=== PATIENT | male | born 1965 | race Caucasian/White ===

== ENCOUNTER → 2019-03-22 09:50 | Outpatient (BNVA) | payer OTHER, SELFPAY | PROVIDERS: Family Provider Internal Medicine; PCP Internal Medicine; Visit Provider Specialist | DX: G43.711 Chronic migraine without aura, intractable, with status migrainosus (principal); G20 Parkinson's disease; F17.220 Nicotine dependence, chewing tobacco, uncomplicated | CPT/HCPCS: 64615; 99212; J0585 ==

== ENCOUNTER 2019-05-16 15:33 | Outpatient (CLI) | payer OTHER, SELFPAY ==
--- NOTE | 2019-05-16 15:53 | MR_ITS ---
WS: [id number] MRI THORACIC SPINE HISTORY: INTERVERTEBRAL DISC DISORDERS WITH RADICULOPATHY, LUMBAR spine. COMPARISON: None available. TECHNIQUE: Multiplanar sequences are performed in sagittal and axial planes. Slight increase in the thoracic kyphosis. Mild disc space narrowing and desiccation throughout the th oracic spine. Very small amount of marrow edema in the LEFT superior articular facets of T6 and T7. S ignal within the cord is normal. T1-2: Normal. T2-3: Shallow RIGHT paracentral disc protrusion without stenosis. T3-4: Mild facet arthropathy. No stenosis. T4-5: Normal. T5-6: Mild bilateral foraminal narrowing. No stenosis. T6-7: RIGHT paracentral disc protrusion with small annular fissure. No stenosis. T7-8: Mild bilateral facet joint arthritis. T8-9: Mild facet joint arthritis. Small osteophyte from the LEFT facet extending toward the foramen with only mild encroachment. T9-10: Facet joint arthritis with mild asymmetric disc bulging to the RIGHT causing mild RIGHT hilary inal narrowing. T10-11: Facet joint arthritis bilateral with mild bilateral foraminal narrowing. T11-12: Mild facet joint arthritis with mild foraminal narrowing. MR/MR thoracic spin wo con* [id number] IMPRESSION: 1. Multilevel level very mild facet joint arthritis. No significant stenosis. 2. Small RIGHT paracentral disc protrusions at T2-3 and T6-7 without cord cont act. 3. Small amount of marrow edema in the superior articular facets on the LEFT a t T6 and T7.
--- NOTE | 2019-05-16 15:55 | XR_ITS ---
WS: [id number] LATERAL LUMBAR SPINE: 3 view. Lateral radiographs are performed in upright neutral, flexion and extension to the patient's toleranc e. HISTORY: INTERVERTEBRAL DISC DISORDERS WITH RADICULOPATHY LUMBAR SPINE. COMPARISON: 09/29/2012 L2 retrolisthesis by 3.3 mm. Does not significantly change with flexion or extension. There is modera te disc space narrowing at L5-S1. Unfused apophysis anterior superior endplate of L4. XR/XR lumbar spine f/e only [id number] IMPRESSION: 1. No lumbar spine instability. 2. Moderate degenerative disc space narrowing at L5-S1.
== END 2019-05-16 15:34 | disposition home or self-care (01) ==
LOC: RADWPI 15:43
PROVIDERS: Family Provider Internal Medicine; PCP Internal Medicine; Visit Provider Anesthesiology Pain Medicine
DX: M51.16 Intervertebral disc disorders with radiculopathy, lumbar region (principal); M47.897 Other spondylosis, lumbosacral region; M51.24 Other intervertebral disc displacement, thoracic region; M25.78 Osteophyte, vertebrae
CPT/HCPCS: 72120; 72146

== ENCOUNTER → 2019-06-28 08:17 | Outpatient (BNVA) | payer OTHER, SELFPAY | PROVIDERS: Family Provider Internal Medicine; PCP Internal Medicine; Visit Provider Specialist | DX: G43.711 Chronic migraine without aura, intractable, with status migrainosus (principal); G20 Parkinson's disease; G25.0 Essential tremor; F17.210 Nicotine dependence, cigarettes, uncomplicated | CPT/HCPCS: 64615; 99212; 99213; J0585 ==

== ENCOUNTER 2019-07-19 11:47 | Emergency (ER) | payer OTHER, SELFPAY ==
[2019-07-19 11:49] VITALS: BP 151/100; PULSE 68; RESP 18; TEMP 36.5; O2SAT 98; BMI 35.2
--- NOTE | 2019-07-19 12:11 | ED_ITS ---
HPI - Headache General: Chief Complaint: Headache Stated Complaint: H/A Time Seen by Provider: 07/19/19 11:50 History of Present Illness: HPI Narrative: Patient is a 53-year-old male who comes to the ED with a migraine. Patient has a past medical history of mi graines, essential tremor and Parkinson's disease. Patient says that this migraine is like his past migraines. Symptoms started this morning when he woke up. He rates the migraine as a 6 out of 10 currently. Location is retro- orbital on both right and left side. He did not take any medication today for his migraine and says that he gets Botox injections to help migraines. Endorses photophobia, nausea and vomiting. Denies any numbness tingling to extremities, weakness to extremities, recent head trauma, vision changes, bladder or bowel symptoms. Associated symptoms: Reports nausea and vomiting; Deny chest pain, fever(s) or rash Review of Systems Const: Denies: fever(s), chills or fatigue Eyes: Reports: photophobia; Denies: change in vision or eye discomfort ENMT: Denies: throat pain, odynophagia, nasal discharge or nasal congestion Card: Denies: chest pain, palpitations, edema, swelling of feet/ankles, dyspnea on exertion or orthopnea Resp: Denies: dyspnea, productive cough or non-productive cough GI: Reports: nausea and vomiting; Denies: abdominal pain, diarrhea, constipation or hematochezia : Denies: flank pain, difficulty urinating, dysuria or hematuria Musc: Denies: neck pain, back pain or extremity swelling Skin/Breast: Denies: rash or new lesions Neuro: Reports: headache(s); Denies: numbness in extremities or weakness in extremities [facility] ED PFSH: Medical History Essential tremor Family History Mother Cancer Grandmother Cancer Other Cerebral palsy Tremor Social History Smoking and tobacco status: never smoked Physical Exam Narrative: EXAM NARRATIVE: Patient is a 53-year-old male who is lying on the exam bed wearing sunglasses when I entered the room. Const: COMMON NORMALS: patient oriented x3 and alert GENERAL APPEARANCE: cooperative and comfortable HENMT: COMMON NORMALS: normocephalic HEAD & SCALP: normocephalic MOUTH: Normal oral and palatal mucosa present THROAT: posterior oropharynx normal and uvula midline Eye: COMMON NORMALS: Equal, round and reactive pupils present and EOMs intact bilaterally PUPIL: Yes Equal, round and reactive pupils present Neck/C-Spine: COMMON NORMALS: supple GENERAL: Yes normal visual inspection Resp: COMMON NORMALS: normal respiratory effort, No retractions, No use of accessory muscles and clear to auscultation bilaterally AUSCULTATION: clear to auscultation bilaterally Cardio: COMMON NORMALS: regular rate, regular rhythm, S1 normal heart sound present, S2 normal heart sound present, No gallops present (Cardio), No clicks present (Cardio), No murmurs present (Cardio) and Peripheral pulses 2+ throughout RATE: regular rate RHYTHM: regular rhythm HEART SOUNDS: S1 normal heart sound present and S2 normal heart sound present PERIPHERAL PULSES: Peripheral pulses 2+ throughout GI: COMMON NORMALS: Normal to inspection, nondistended, normoactive bowel sounds present, Soft to palpation, non-tender and no masses PALPATION: Yes Soft to palpation : COMMON NORMALS: Yes no CVA tenderness BLADDER/KIDNEY EXAM: Yes no CVA tenderness Back/Pelvis: COMMON NORMALS: no CVA tenderness Extremity: COMMON NORMALS: normal to inspection and no pedal edema Neuro: COMMON NORMALS: patient oriented x3, CN's II-XII intact bilaterally, moves all extremities, no focal motor deficits and no sensory deficits noted SENSORIUM/ORIENTATION: Yes alert COORDINATION/BALANCE: [id number] test normal SENSORY EXAM: Yes extremities (intact) MOTOR EXAM: 5/5 motor strength present throughout COORDINATION: [id number] test normal Skin: COMMON NORMALS: no rashes or lesions noted GENERAL SKIN EXAM: no rashes or lesions noted and dry skin Course Reevaluation(s): Reevaluation #1: After giving Toradol and sumatriptan patient's headache had not improved. He is still reporting a 6-7 out of 10 rated migraine. I looked over previous medical records and he was given Dilaudid in the past to treat migraine. I discussed that with patient and he agreed with plan to give Dilaudid to reduce migraine. Reevaluation #2: Patient says his migraine now is 1 down to a 1. Patient is ready to go home and rest. Time: 15:18 Vital Signs: Vital signs: Vital Signs Temperature 97.7 F 07/19/19 11:49 Pulse Rate 58 L 07/19/19 14:32 Respiratory Rate 14 07/19/19 14:32 Blood Pressure 150/88 07/19/19 14:32 Pulse Oximetry 100 07/19/19 14:32 MDM - Headache MDM Narrative: Medical decision making narrative: Patient is a 53-year-old male who comes to the ED with a migraine. Patient has a past medical history of migraines and is currently being treated with injections Botox. Migraine is similar to past migraines and neuro exam was normal. Patient was given the migraine cocktail of IV fluids, Toradol, Reglan, Decadron, and Benadryl. Migraine did not improve and sumatriptan was then given. Migraine still but not improved with sumatriptan. I reviewed patient's past ED visits for migraine and Dilaudid has been given before to help with migraines. I decided to give patient a dose of Dilaudid and patient's migraine significantly improved. Patient was discharged and told to follow-up with PCP in 7 to 10 days for reevaluation. Patient understood and agreed with plan. Discharge Plan Discharge Patient Disposition: Home, Self-Care Clinical Impression: Chronic migraine without aura, intractable, with status migrainosus Condition: Stable Prescriptions: No Action primidone 50 mg tablet 50 mg PO BID RF: 0 gemfibrozil 600 mg tablet 600 mg PO BID RF: 0 melatonin 3 mg capsule 6 mg PO .HS RF: 0 cyproheptadine 4 mg tablet 4 mg PO .HS RF: 0 prazosin 2 mg capsule 4 mg PO .HS RF: 0 venlafaxine 75 mg capsule,extended release 24hr 225 mg PO DAILY RF: 0 hydroxyzine HCl 25 mg tablet 25 mg PO .HS RF: 0 carbamazepine 200 mg tablet 200 mg PO BID RF: 0 celecoxib 200 mg capsule 200 mg PO DAILY RF: 0 mirtazapine 30 mg tablet 30 mg PO .HS RF: 0 Discharge Orders: Discharge Order (Routine); Ordered 07/19/19 Ordered By: Otis Torres Referrals: Levi Toribio [Primary Care Provider] - Discharge Diet: Regular Discharge Activity: Increase activity as tolerated Patient Instructions: Migraine Headache (ED) Activity Restrictions/Additional Instructions: Go home and rest today. Follow-up with your PCP in 7 days for reevaluation. Drink plenty of fluids and stay hydrated. Return to the ED if symptoms worsen. Discharge Date/Time: 07/19/19 15:42 Coding Level of Care Code ED College President for Elio Fwgualberto Exam Comprehensive
[2019-07-19 12:37] VITALS: BP 125/79; PULSE 62; RESP 14; O2SAT 100
[2019-07-19] MEDS: sodium chloride 0.9% 1,000 ML 999 ML IV (12:38)
[2019-07-19] MEDS: dexamethasone 10 mg/mL INJ IVP (12:39)
[2019-07-19] MEDS: ketorolac 30 mg/mL INJ IVP (12:39)
[2019-07-19] MEDS: diphenhydrAMINE 50 mg/mL SDV 1mL 25 MG IVP (12:39)
[2019-07-19] MEDS: metoclopramide 5 mg/mL SDV 2 mL 10 MG IVP (12:39)
[2019-07-19 13:28] VITALS: BP 136/87; PULSE 60; RESP 14; O2SAT 99
[2019-07-19] MEDS: SUMAtriptan 6 mg/0.5 mL SDV SUBCUT (13:46)
[2019-07-19 14:32] VITALS: BP 150/88; PULSE 58; RESP 14; O2SAT 100
[2019-07-19] MEDS: HYDROmorphone 1 mg/mL INJ 1 mL IVP (14:56)
== END 2019-07-19 15:42 | disposition home or self-care (01) ==
PROVIDERS: Emergency Provider Physician Assistant; PCP Internal Medicine
DX: G43.711 Chronic migraine without aura, intractable, with status migrainosus (principal)
CPT/HCPCS: 12345; 96361; 96372; 96374; 96375; 99283; J1100; J1170; J1200; J1885; J2765; J3030; J7030

== ENCOUNTER → 2019-09-20 08:08 | Outpatient (BNVA) | payer OTHER, SELFPAY | PROVIDERS: Family Provider Internal Medicine; PCP Internal Medicine; Visit Provider Specialist | DX: G43.711 Chronic migraine without aura, intractable, with status migrainosus (principal); G25.0 Essential tremor; G20 Parkinson's disease | CPT/HCPCS: 64615; J0585 ==

== ENCOUNTER 2019-09-27 02:47 | Inpatient (IN) | payer OTHER, SELFPAY ==
[2019-09-27] VITALS (10 sets, daily range): BP systolic 78–139; BP diastolic 49–92; PULSE 53–64; RESP 10–21; TEMP 36.3–36.8; O2SAT 92–99; BMI 36.3
--- NOTE | 2019-09-27 02:51 | XR_ITS ---
WS: [id number] Portable AP upright chest, 09/27/2019 Clinical Data: syncope Comparison: Portable chest, 03/23/2017. Findings: No nodules, masses or effusions are seen. The heart is normal. The pulmonary vascularity is not increased. No pneumonia or pneumothorax is seen. XR/XR chest 1V portable [id number] Impression: Negative chest.
--- NOTE | 2019-09-27 02:51 | CTR_ITS ---
PROCEDURE INFORMATION: Exam: CT Head Without Contrast Exam date and time: 09/27/2019 3:06 AM Age: 53 years old Clinical indication: Syncope and collapse; Patient HX: Syncope this a. M. Bradycardic and hypotensive. History of chronic migraines. TECHNIQUE: Imaging protocol: Computed tomography of the head without contrast. Radiation optimization: All CT scans at this facility use at least one of these dose optimization techniques: automated exposure control; mA and/or kV adjustment per patient size (includes targeted exams where dose is matched to clinical indication); or iterative reconstruction. COMPARISON: CT head wo con* [id number] 05/07/2013 10:32 PM RADIATION DOSE METRICS: Total DLP (mGy-cm): 889.16 FINDINGS: Brain: No acute intracranial hemorrhage or mass effect. No definite acute infarct by CT. MRI could be more sensitive/specific for detection, as clinically directed. Ventricles: Ventricle size is normal for age. Bones/joints: No definite acute skull fracture. Sinuses: Included paranasal sinuses are essentially clear. Mastoid air cells: No significant acute finding. CT/CT head wo con* [id number] IMPRESSION: 1. No acute intracranial hemorrhage or mass effect. 2. No definite acute infarct by CT, see above. 3. Other findings discussed above. Radiation Dose CTDIVOL = (mGy): DLP = 889.16 (mGy-cm)
--- NOTE | 2019-09-27 02:51 | ECG_ITS ---
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 Measurements Intervals [place] Rate: 55 P: 40 [place]: 186 QRS: 35 QRSD: 99 T: 45 QT: 458 QTc: 440 Interpretive Statements SINUS BRADYCARDIA Compared to ECG 03/23/2017 00:24:41 No significant changes Electronically Signed On 09-27-2019 17:06:42 CDT by Quincy Cook M.D. [id number] f
--- NOTE | 2019-09-27 03:05 | ED_ITS ---
HPI - Syncope General: Chief Complaint: Syncope Stated Complaint: FALL Time Seen by Provider: 09/27/19 02:48 Source: patient and EMS Mode of arrival: EMS Limitations: no limitations History of Present Illness: HPI narrative: 53-year-old male who states he got up tonight roughly 30 minutes ago and had a syncopal event. He states that he started new medication 2 weeks ago and has had fluctuating blood pressure since then. Patient was hypotensive when EMS arrived in the 60s and blood pressure is 83/50. He denies any cough or fever. He denies any chest pain. He states he d id strike his head when he fell and has a mild headache. Denies any worsening improving factors. Associated symptoms: Deny abdominal pain, fever(s), headache(s) or nausea Review of Systems Const: Denies: fever(s), chills, body aches or change in appetite Eyes: Denies: blurry vision or eye discomfort ENMT: Denies: throat pain or dental pain Card: Reports: syncope Resp: Denies: dyspnea GI: Denies: abdominal pain, nausea, vomiting or diarrhea : Denies: dysuria Musc: Denies: neck pain or back pain Skin/Breast: Denies: rash Neuro: Denies: headache(s) Psych: Denies: depression Dion/Lymph: Denies: easy bruising All/Imm: Denies: urticaria PFSH ED PFSH: Medical History Essential tremor Family History Mother Cancer Grandmother Cancer Other Cerebral palsy Tremor Social History Smoking and tobacco status: never smoked History of recent travel: No Physical Exam Const: COMMON NORMALS: no acute distress, patient oriented x3 and healthy appearing HENMT: COMMON NORMALS: normocephalic and atraumatic HEAD & SCALP: normocephalic and atraumatic Eye: COMMON NORMALS: Equal, round and reactive pupils present and EOMs intact bilaterally PUPIL: Yes Equal, round and reactive pupils present Neck/C-Spine: COMMON NORMALS: full ROM and supple Chest: COMMONS NORMALS: normal inspection of the chest and normal palpation of entire chest wall Resp: COMMON NORMALS: normal respiratory effort, No retractions, No use of accessory muscles and clear to auscultation bilaterally AUSCULTATION: clear to auscultation bilaterally Cardio: COMMON NORMALS: regular rhythm and No murmurs present (Cardio) RATE: bradycardic RHYTHM: regular rhythm GI: COMMON NORMALS: Normal to inspection, nondistended, normoactive bowel sounds present, Soft to palpation, non-tender and no masses PALPATION: Yes Soft to palpation Extremity: COMMON NORMALS: normal to inspection and full ROM Neuro: COMMON NORMALS: patient oriented x3, moves all extremities and no focal motor deficits Psych: COMMON NORMALS: mental status grossly normal, Normal thought process present and cooperative THOUGHT PROCESS: Normal thought process present Skin: COMMON NORMALS: no rashes or lesions noted and no wounds GENERAL SKIN EXAM: no rashes or lesions noted Course Vital Signs: Vital signs: Vital Signs Temperature 98.0 F 09/27/19 02:49 Pulse Rate 55 L 09/27/19 04:46 Respiratory Rate 17 09/27/19 04:46 Blood Pressure 92/53 09/27/19 04:46 Pulse Oximetry 98 09/27/19 04:46 MDM - Syncope MDM Narrative: Medical decision making narrative: Jim presents here with acute kidney injury likely from his new medications HCTZ and celecoxib. This is likely caused his slight hypotension and syncope as well. Patient has no signs of acute coronary cause. Patient given IV fluids here and blood pressure is improved. I spoke to hospitalist will admit. Lab Data: Labs: Lab Results 09/27/19 09/27/19 09/27/19 Range/Units 03:10 03:10 03:10 WBC 7.2 (4.0-10.0) 10^3/ uL RBC 4.79 (4.1-5.3) 10^6/u L Hgb 13.8 (11.7-16.6) g/dL Hct 42.1 (42.0-52.0) % MCV 87.9 (80-94) fL MCH 28.8 (28.0-34.0) pg MCHC 32.8 (30.0-36.0) g/dL RDW 12.1 (12.1-15.1) % Plt Count 258 (130-400) 10^3/c mm MPV 9.8 (7.4-10.4) fL Neut % (Auto) 58.1 % Lymph % (Auto) 29.4 % [place] % (Auto) 7.4 % Eos % (Auto) 4.3 % Baso % (Auto) 0.4 % Neut # (Auto) 4.17 (1.8-7.7) 10^3/u L Lymph # (Auto) 2.1 (0.8-4.8) 10^3/u L [place] # (Auto) 0.5 (0.2-0.9) 10^3/u L Eos # (Auto) 0.3 (0.0-0.8) 10^3/u L Baso # (Auto) 0.0 (0.0-0.1) 10^3/u L Nucleated RBC % (a uto) 0 % Nucleated RBCs # 0.0 /100WBC PT 14.00 H (10.5-13.3) SECO NDS INR 1.05 (0.8-1.2) Sodium 137 (136-145) mmol/L Potassium 3.7 (3.5-5.1) mmol/L Chloride 99 (98-107) mmol/L Carbon Dioxide 24 (22-29) mmol/L Anion Gap 17.7 (5-19) BUN 34 H (6-20) mg/dL Creatinine 3.4 H (0.7-1.2) mg/dL GFR Calculation 19.2 L (90-130) mL/min Glucose 128 H (65-115) mg/dL Calculated Osmolal ity 283 L (285-295) mOsm/k g Lactate (0.5-2.2) mmol/L Calcium 9.2 (8.5-10.5) mg/dL Total Bilirubin 0.2 (0.15-1.2) mg/dL AST 24 (0-40) U/L ALT 27 (0-41) U/L Alkaline Phosphata se 64 (40-130) IU/L Troponin T Baselin e (0-15) ng/L Total Protein 7.6 (6.6-8.7) g/dL Albumin 5.0 (3.5-5.2) g/dL Globulin 2.6 (1.3-4.6) g/dL 07/23/20 07/23/20 Range/Units 03:10 03:36 WBC (4.0-10.0) 10^3/ uL RBC (4.1-5.3) 10^6/u L Hgb (11.7-16.6) g/dL Hct (42.0-52.0) % MCV (80-94) fL MCH (28.0-34.0) pg MCHC (30.0-36.0) g/dL RDW (12.1-15.1) % Plt Count (130-400) 10^3/c mm MPV (7.4-10.4) fL Neut % (Auto) % Lymph % (Auto) % [place] % (Auto) % Eos % (Auto) % Baso % (Auto) % Neut # (Auto) (1.8-7.7) 10^3/u L Lymph # (Auto) (0.8-4.8) 10^3/u L [place] # (Auto) (0.2-0.9) 10^3/u L Eos # (Auto) (0.0-0.8) 10^3/u L Baso # (Auto) (0.0-0.1) 10^3/u L Nucleated RBC % (a uto) % Nucleated RBCs # /100WBC PT (10.5-13.3) SECO NDS INR (0.8-1.2) Sodium (136-145) mmol/L Potassium (3.5-5.1) mmol/L Chloride (98-107) mmol/L Carbon Dioxide (22-29) mmol/L Anion Gap (5-19) BUN (6-20) mg/dL Creatinine (0.7-1.2) mg/dL GFR Calculation (90-130) mL/min Glucose (65-115) mg/dL Calculated Osmolal ity (285-295) mOsm/k g Lactate 1.6 (0.5-2.2) mmol/L Calcium (8.5-10.5) mg/dL Total Bilirubin (0.15-1.2) mg/dL AST (0-40) U/L ALT (0-41) U/L Alkaline Phosphata se (40-130) IU/L Troponin T Baselin e 24 H (0-15) ng/L Total Protein (6.6-8.7) g/dL Albumin (3.5-5.2) g/dL Globulin (1.3-4.6) g/dL Imaging Data^: CXR: Attestation: I personally reviewed and interpreted this imaging study as follows: My impression: no acute abnormality CT Head: Attestation: I personally reviewed and interpreted this imaging study as follows: Radiologist's impression: [address] [address] [address] Scan Report Signed Patient: Sae Zavala Unit #: [id number] : 1965 Age/Sex: 53 / M ADM Date: 09/27/19 Loc: ER Room/Bed: Attending Dr: Ordering Provider/Ordering MD: Kali Gregg MD Date of Service: 09/27/19 Procedure(s): CT head wo con* [id number] Accession Number(s): [id number] Report Number: [id number] PROCEDURE INFORMATION: Exam: CT Head Without Contrast Exam date and time: 09/27/2019 3:06 AM Age: 53 years old Clinical indication: Syncope and collapse; Patient HX: Syncope this a. M. Bradycardic and hypotensive. History of chronic migraines. TECHNIQUE: Imaging protocol: Computed tomography of the head without contrast. Radiation optimization: All CT scans at this facility use at least one of these dose optimization techniques: automated exposure control; mA and/or kV adjustment per patient size (includes targeted exams where dose is matched to clinical indication); or iterative reconstruction. COMPARISON: CT head wo con* [id number] 05/07/2013 10:32 PM RADIATION DOSE METRICS: Total DLP (mGy-cm): 889.16 FINDINGS: Brain: No acute intracranial hemorrhage or mass effect. No definite acute infarct by CT. MRI could be more sensitive/specific for detection, as clinically directed. Ventricles: Ventricle size is normal for age. Bones/joints: No definite acute skull fracture. Sinuses: Included paranasal sinuses are essentially clear. Mastoid air cells: No significant acute finding. CT/CT head wo con* [id number] IMPRESSION: 1. No acute intracranial hemorrhage or mass effect. 2. No definite acute infarct by CT, see above. 3. Other findings discussed above. EKG Data^: EKG 1: Attestation: I personally reviewed and interpreted this EKG as follows: EKG interpretation date: 09/27/19 EKG interpretation time: 03:05 Interpretation: sinus jessica hr [address] or t wave abnormalities qrs 99 qtc 447 Discharge Plan Discharge Patient Disposition: Admitted As Inpatient Admit Provider: Santhosh Lainez Discharge Date/Time: 09/27/19 04:53 Coding Level of Care Code ED Entry Level Machine Operator for Chg Fwd Exam Comprehensive
[2019-09-27 03:29] LABS: Basophils % 0.4 %; Eosinophils # 0.3 10^3/uL (0.0-0.8); Eosinophils % 4.3 %; Hematocrit 42.1 % (42.0-52.0); Hemoglobin 13.8 g/dL (11.7-16.6); Lymphocytes # 2.1 10^3/uL (0.8-4.8); Lymphocytes % 29.4 %; Mean Corpuscular HGB Conc 32.8 g/dL (30.0-36.0); Mean Corpuscular Hemoglobin 28.8 pg (28.0-34.0); Mean Corpuscular Volume 87.9 fL (80-94); Mean Platelet Volume 9.8 fL (7.4-10.4); Monocytes # 0.5 10^3/uL (0.2-0.9); Monocytes % 7.4 %; Neutrophils # 4.17 10^3/uL (1.8-7.7); Neutrophils % 58.1 %; Nucleated Red Blood Cells % 0 %; Platelet Count 258 10^3/cmm (130-400); Red Blood Count 4.79 10^6/uL (4.1-5.3); Red Cell Distribution Width 12.1 % (12.1-15.1); White Blood Count 7.2 10^3/uL (4.0-10.0)
[2019-09-27] MEDS: sodium chloride 0.9% 1,000 ML 999 ML IV ×2 (03:30)
[2019-09-27 03:41] LABS: Alanine Aminotransferase 27 U/L (0-41); Alkaline Phosphatase 64 IU/L (40-130); Anion Gap 17.7 (5-19); Aspartate Amino Transferase 24 U/L (0-40); Blood Urea Nitrogen 34 mg/dL (6-20); Calcium 9.2 mg/dL (8.5-10.5); Carbon Dioxide 24 mmol/L (22-29); Chloride 99 mmol/L (98-107); Globulin 2.6 g/dL (1.3-4.6); Glomerular Filtration Rate 19.2 mL/min (90-130); Glucose 128 mg/dL (65-115); Osmolality Calculated 283 mOsm/kg (285-295); Potassium 3.7 mmol/L (3.5-5.1); Sodium 137 mmol/L (136-145); Total Bilirubin 0.2 mg/dL (0.15-1.2); Total Protein 7.6 g/dL (6.6-8.7)
[2019-09-27 03:43] LABS: Troponin(5th) Baseline 24 ng/L (0-15)
[2019-09-27 03:54] LABS: Lactate (Lactic Acid level) 1.6 mmol/L (0.5-2.2)
[2019-09-27 04:04] LABS: INR 1.05 (0.8-1.2)
--- NOTE | 2019-09-27 04:51 | ECG_ITS ---
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 Measurements Intervals [place] Rate: 55 P: 40 [place]: 186 QRS: 35 QRSD: 99 T: 45 QT: 458 QTc: 440 Interpretive Statements SINUS BRADYCARDIA Compared to ECG 03/23/2017 00:24:41 No significant changes Electronically Signed On 09-27-2019 17:09:20 CDT by Quincy Cook M.D. [id number]
--- NOTE | 2019-09-27 05:06 | PM.HP ---
Providers/Chief Complaint Admitting Physician: Santhosh Lainez MD Primary Care Provider: Levi Toribio Chief Complaint: FALL History of Present Illness Sae Zavala is a 53 year old male who carries history of Parkinson's disease follows up with Dr. Fish for migraines for Botox injections, essential tremors, depression, came in after sustaining a fall at home. Patient is stating that around midnight he got up to go to bathroom when he felt extremely dizzy and fell on the floor. Patient is denying loss of consciousness as he could easily recall what happened, his called EMS to take him to the ED for further evaluation. Patient is denying chest pain, palpitations, seizure-like activities, loss of consciousness. No recent nausea, vomiting, diarrhea or dysuria. Patient is stating that recently he started taking hydrochlorothiazide along celecoxib. He is stating that his blood pressure runs on the lower side and heart rate stays in the 60s. He is denying any constipation, extreme lethargy, history of hypothyroidism. He is stating that he felt abdominal cramps around midnight and was going towards the bathroom to have a bowel movement when it happened. Diagnosis in the ER revealed hypotension, bradycardia, I have requested 1 dose of .5 mg of atropine Requested TSH, delta troponin nonsignificant, CT head negative for acute pathology Patient currently chest pain-free, extremely somnolent and wants to go to sleep Review of Systems Const: Reports: body aches, fatigue and malaise; Denies: fever(s) or chills Eyes: Denies: change in vision ENMT: Denies: throat pain Card: Reports: lightheadedness; Denies: chest pain, palpitations, dyspnea on exertion or orthopnea Resp: Denies: dyspnea GI: Denies: abdominal pain, nausea, diarrhea or constipation : Denies: flank pain Musc: Denies: neck pain Skin/Breast: Reports: lesions Neuro: Denies: headache(s), frequent falls, behavioral changes, Slurred speech present or seizure-like activity Psych: Denies: anxiety or depression Endo: Denies: polyuria Dion/Lymph: Denies: easy bruising All/Imm: Denies: urticaria Medications/Allergies Home Medications Medication Instructions Recorded Confirmed Last Taken Type carbamazepine 200 mg tablet 200 mg PO BID 03/22/19 09/20/19 Unknown History celecoxib 200 mg capsule 200 mg PO DAILY cap 03/22/19 09/20/19 Unknown History cyproheptadine 4 mg tablet 4 mg PO .HS tab 03/22/19 09/20/19 Unknown History gemfibrozil 600 mg tablet 600 mg PO BID 03/22/19 09/20/19 Unknown History hydroxyzine HCl 25 mg tablet 25 mg PO .HS tab 03/22/19 09/20/19 Unknown History melatonin 3 mg capsule 6 mg PO .HS cap 03/22/19 09/20/19 Unknown History mirtazapine 30 mg tablet 30 mg PO .HS tab 03/22/19 09/20/19 Unknown History prazosin 2 mg capsule 4 mg PO .HS cap 03/22/19 09/20/19 Unknown History primidone 50 mg tablet 50 mg PO BID tab 03/22/19 09/20/19 Unknown History venlafaxine 75 mg capsule,extended 225 mg PO DAILY cap 03/22/19 09/20/19 Unknown History release 24 hr Allergies Allergy/AdvReac Type Severity Reaction Status Date / Time valproic acid Allergy unkown Verified 09/27/19 05:08 PFSH Acute PFSH: Medical History Ch mgr wo marilyn w ntr w st Chronic migraine without aura, intractable, with status migrainosus Essential tremor Essential tremor Parkinson disease Surgical History History of carpal tunnel release History of cholecystectomy Family History Mother Cancer Grandmother Cancer Other Cerebral palsy Tremor Social History Smoking and tobacco status: never smoked History of recent travel: No Vitals/I&O/Wt Last Vital Signs Temp 98.0 F 09/27/19 02:49 Pulse 55 L 09/27/19 04:46 Resp 17 09/27/19 04:46 BP 92/53 09/27/19 04:46 Pulse Ox 98 09/27/19 04:46 09/26/19 09/26/19 09/27/19 14:59 22:59 06:59 Intake Total 1999 Balance 1999 Weight last 48 hrs Weight 102.058 kg Physical Exam Narrative: EXAM NARRATIVE: male very pleasant to communicate, extremely somnolent Bradycardic and hypotensive S1, S2 no signs of heart failure Abdomen soft, distended, visceral obesity, EOMI, PERRLA GCS 15, neurologically nonfocal deficit Lungs are clear to auscultation Multiple skin tattoos Appropriate mood and affect No respiratory distress or confusion No lower extremity edema gangrene or ulcer Data : 09/27/19 03:10 09/27/19 03:10 A&P Assessment and plan (1) Dizziness: Status: Acute (2) Dehydration: Status: Acute (3) CAROLEE (acute kidney injury): Status: Acute Additional A&P Information Dizziness Patient describe dizziness as lightheadedness I believe his dizziness is secondary to autonomic dysfunction which 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 with concomitant use of sedating agents such as mirtazapine I would give him 1 dose of 0.5 mg of atropine check TSH, request echo Currently chest pain-free, troponin not similarly high Patient is denying history of seizures, AR, coronary disease Sinus bradycardia Symptomatic bradycardia Monitor for indication for pacemaker Patient is not on any AV agata blocking agent Follow-up with TSH No signs of coronary ischemia I would hold mirtazapine Acute kidney injury secondary to drug intake Patient recently started hydrochlorothiazide, he is also taking celecoxib Hold both agents, clinically does not look dehydrated Monitor creatinine and kidney function, continue normal saline at lower rate Full code Cardiac diet DVT prophylaxis Heparin Attestations Medical Necessity Statement*: Anticipating stay in the hospital cross more than 2 midnights continued management for symptomatic bradycardia and CAROLEE Time Spent in Patient Care: (>than 50% of time spent in counselling and/or direct pt care on unit). 60mins Coding Level of Care Code Acute Office Clerk Routine for Tobiasg Fwd Diagnoses Dizziness R42 Dehydration E86.0 CAROLEE (acute kidney injury) N17.9
--- NOTE | 2019-09-27 05:08 | PC.NURSE ---
Patient arrived to the floor from the ED after report was received via phone. Patient does not know his medications well. I am unable to complete med rec at this time. Patient is alert and oriented and ambulatory. Patient has been oriented to his room and has call light within reach. Patient states he is sore all over and that I'm always sore. Patient is not in any distress at this time. Will monitor.
--- NOTE | 2019-09-27 05:24 | PC.NURSE ---
Patient has been educated to use his call light to ask for assistance before getting up. Will monitor.
--- NOTE | 2019-09-27 06:02 | USCV_ITS ---
Sae Zavala Age: 53 Gender: M : 1965 Exam Date: 09/27/2019 07:42 Ordering Phys: Santhosh Lainez MD Technologist: Brian Teresa Exam Location: [facility] – [place] Indication: CP BP: 92 / 54 HR: 57 Rhythm: Sinus Technical Quality: Fair MEASUREMENTS (Male / Female) Normal Values 2D ECHO LV Diastolic Diameter PLAX 3.4 cm 4.2 - 5.9 / 3.9 - 5.3 cm LV Systolic Diameter PLAX 2.3 cm IVS Diastolic Thickness 1.4 cm 0.6 - 1.0 / 0.6 - 0.9 cm IVS Systolic Thickness 1.9 cm LVPW Diastolic Thickness 1.4 cm 0.6 - 1.0 / 0.6 - 0.9 cm LVPW Systolic Thickness 1.5 cm LVOT Diameter 2.0 cm LV Ejection Fraction 2D Teich 61.1 % LV Ejection Fraction MOD 2C 71.7 % LV Ejection Fraction 2C AL 71.3 % LA Diameter 4.2 cm LA Width 3.4 cm LA Height 4.4 cm RA Width 3.6 cm RA Height 4.3 cm Aorta at Sinotubular Diameter 2.8 cm M-MODE LV Diastolic Diameter MM 5.4 cm 4.2 - 5.9 / 3.9 - 5.3 cm LV Systolic Diameter MM 3.4 cm LV Ejection Fraction MM Teich 67.2 % IVS Diastolic Thickness MM 1.2 cm 0.6 - 1.0 / 0.6 - 0.9 cm IVS Systolic Thickness MM 1.6 cm LVPW Diastolic Thickness MM 1.3 cm 0.6 - 1.0 / 0.6 - 0.9 cm LVPW Systolic Thickness MM 2.2 cm RV Diastolic Diameter MM 1.8 cm Aortic Annulus Diameter 4.2 cm LA Ao Ratio MM 1.0 MV E Point Septal Separation 1.2 cm DOPPLER AV Peak Velocity 147.0 cm/s LVOT Peak Velocity 98.0 cm/s AV Area Cont Eq vti 2.3 cm squared AV Area Cont Eq pk 2.2 cm squared MV Area PHT 5.0 cm squared Mitral E to A Ratio 1.3 MV E' Velocity 9.0 cm/s Mitral E to MV E' Ratio 8.8 Mitral E to LV E' Lateral Ratio 9.0 Mitral E to LV E' Septal Ratio 8.7 TR Peak Velocity 160.0 cm/s TR Peak Gradient 10.2 mmHg TV Peak E Velocity 109.0 cm/s Right Atrial Pressure 3.0 mmHg Pulmonary Artery Systolic Pressu 13.2 mmHg PV Peak Velocity 108.0 cm/s FINDINGS Left Ventricle Normal left ventricular cavity size. Normal left ventricular systolic function. No regional wall motion abnormalities. Left ventricular ejection fraction is estimated at 67 %. Grade II/IV diastolic dysfunction, moderately elevated filling pressures. Right Ventricle The right ventricle is normal in size and function. Right Atrium The right atrium is normal in size. Left Atrium The left atrium is normal in size. Mitral Valve Structurally normal mitral valve without significant stenosis or prolapse. There is no mitral regurgitation. Aortic Valve Structurally normal aortic valve without significant sclerosis or stenosis. There is no aortic regurgitation. Tricuspid Valve Structurally normal tricuspid valve without significant stenosis or regurgitation. Pulmonary artery systolic pressure is normal. Pulmonic Valve Structurally normal pulmonic valve without significant stenosis. There is no pulmonic regurgitation. Pericardium Normal pericardium without effusion. Aorta Normal ascending aorta dimension. CONCLUSIONS 1-Normal left ventricular cavity size. Normal left ventricular systolic function. No regional wall motion abnormalities. Left ventricular ejection fraction is estimated at 67 %. Grade II/IV diastolic dysfunction, moderately elevated filling pressures. 2-. There is no pericardial effusion. 3-No significant valve abnormalities. 4-Pulmonary artery systolic pressure is within normal limits. 5-Right atrial pressure is around 5 mm of mercury. 6-There are no prior echocardiogram studies to compare. Santhosh Baron MD (Electronically Signed) Final Date: 27 September 2019 22:01 S
[2019-09-27] MEDS: sodium chloride 0.9% 1,000 ML 75 ML IV ×2 (06:28→20:31)
[2019-09-27] MEDS: heparin 5,000 unit/mL INJ 1 mL 5000 UNIT SUBCUT ×3 (06:28→20:32)
--- NOTE | 2019-09-27 06:33 | PC.NURSE ---
Dr. Lainez in room to see patient. Heart rate running in the 50s. Ordered to give IV Atropine.
[2019-09-27] MEDS: atropine 0.1 mg/mL Syr 10 mL 0.4 MG IVP (06:53)
[2019-09-27] MEDS: primidone 50 mg Tablet PO ×2 (07:58→17:22)
[2019-09-27] MEDS: gemfibrozil 600 mg Tablet PO ×2 (07:58→17:22)
[2019-09-27] MEDS: venlafaxine ER (24HR) 75 mg Capsule 225 MG PO (07:58)
[2019-09-27 08:42] LABS: Thyroid Stimulating Hormone 10.37 uIU/mL (0.27-4.20)
--- NOTE | 2019-09-27 08:51 | ECG_ITS ---
[facility] Test Date: 2019-09-27 Pat Name: Sae Zavala Department: Room: 102 Gender: Male Mobile Phlebotomist: : 1965 Requested By: Kali Gregg Order Number: [id number] Paramjit MD: Quincy Cook M.D. Measurements Intervals [place] Rate: 59 P: 34 GA: 171 QRS: 12 QRSD: 96 T: 28 QT: 451 QTc: 450 Interpretive Statements SINUS BRADYCARDIA Compared to ECG 09/27/2019 03:05:31 No significant changes Electronically Signed On 09-27-2019 17:11:19 CDT by Quincy Cook M.D. [id number]
--- NOTE | 2019-09-27 09:06 | P.PN_ITS ---
Subjective Subjective: Interval history: Chart reviewed, received 0.5 mg dose of atropine around 7 AM, heart rate now in the 60s, low normal blood pressure, on room air. No apparent distress, wants to rest as he still feels quite fatigued. Encouraged to get up and walk around some so we can see how his heart rate response to exertion. Medications: Reviewed: Yes Medication Review Details: Active Medications Generic Name Dose Route Start Last Admin Trade Name Freq PRN Reason Stop Dose Admin Cyproheptadine HCl 4 mg 09/27/19 21:00 Periactin PO BEDTIME SARITHA Gemfibrozil 600 mg 09/27/19 09:00 09/27/19 07:58 Lopid PO 600 mg BID SARITHA Administration Heparin Sodium (Be ef Lung) 5,000 unit 09/27/19 06:30 09/27/19 06:28 Heparin SUBCUT 5,000 unit Q8H SARITHA Administration Sodium Chloride 1,000 mls @ 75 ml s/hr 09/27/19 06:02 09/27/19 06:28 Sodium Chloride 0.9% IV 75 mls/hr .[id number] SARITHA Administration Primidone 50 mg 09/27/19 09:00 09/27/19 07:58 Mysoline PO 50 mg BID SARITHA Administration Venlafaxine HCl 225 mg 09/27/19 09:00 09/27/19 07:58 Effexor Xr PO 225 mg DAILY SARITHA Administration valproic acid Allergy (Verified 09/27/19 05:08) unkown Vitals/I&O/Wt Last Vital Signs Temp 97.5 F L 09/27/19 07:25 Pulse 64 09/27/19 07:25 Resp 12 09/27/19 07:25 BP 90/49 09/27/19 07:25 Pulse Ox 92 09/27/19 07:25 09/26/19 09/27/19 09/27/19 22:59 06:59 14:59 Intake Total 1999 Balance 1999 Weight last 48 hrs Weight 102.058 kg Physical Exam Const: COMMON NORMALS: no acute distress and patient oriented x3 GENERAL APPEARANCE: cooperative and comfortable NUTRITIONAL APPEARANCE: obese morbidly obese ORIENTATION/CONSCIOUSNESS: Yes awake HENMT: COMMON NORMALS: normocephalic, atraumatic, hearing grossly normal bilaterally and moist oral mucous membranes HEAD & SCALP: normocephalic and atraumatic Eye: COMMON NORMALS: Equal, round and reactive pupils present, EOMs intact bilaterally and conjunctivae normal CONJUNCTIVA: Yes conjunctivae normal PUPIL: Yes Equal, round and reactive pupils present Neck/C-Spine: COMMON NORMALS: full ROM GENERAL: Yes normal visual inspection and Yes trachea midline Resp: COMMON NORMALS: normal respiratory effort, No retractions, No use of accessory muscles and clear to auscultation bilaterally EFFORT & INSPECTION: Yes able to speak in complete sentences, Yes symmetric chest movement and No tachypneic AUSCULTATION: clear to auscultation bilaterally Cardio: COMMON NORMALS: regular rhythm, S1 normal heart sound present, S2 normal heart sound present and No murmurs present (Cardio) RATE: bradycardic RHYTHM: regular rhythm HEART SOUNDS: S1 normal heart sound present and S2 normal heart sound present GI: COMMON NORMALS: Normal to inspection, nondistended, normoactive bowel sounds present, Soft to palpation and non-tender INSPECTION: Yes central obesity PALPATION: Yes Soft to palpation Extremity: COMMON NORMALS: normal to inspection, full ROM and no clubbing, cyanosis or edema; negative for no pedal edema Neuro: COMMON NORMALS: patient oriented x3, moves all extremities, no focal motor deficits and no sensory deficits noted Psych: COMMON NORMALS: mental status grossly normal, Normal thought process present, cooperative, normal affect and speech normal SPEECH: Yes normal speech THOUGHT PROCESS: Normal thought process present Skin: COMMON NORMALS: no rashes or lesions noted, no jaundice, no petechiae and no mottling GENERAL SKIN EXAM: no rashes or lesions noted Data : 09/27/19 03:10 09/27/19 03:10 A&P Assessment and plan (1) Bradycardia: -Noted to be bradycardic with heart rates in the 50s, received 0.5 mg dose of atropine x1 with some improvement in heart rate, currently in the 60s. -Per review of old [facility] records has been bradycardic in the past with heart rates in the 40s, baseline heart rate seems to be in the 50-60 range. He has had an event monitor done in 05/2011 showing sinus rhythm and sinus bradycardia, no noted arrhythmia -Telemetry monitoring -No baseline echo, ordered -Continued monitoring of vital signs -Has not been on any beta-blockers or other agata blocking agents Status: Acute (2) Dizziness: -Could be related to dehydration and bradycardia with noted hypotension -On IV fluid hydration -Fall precautions -Continued monitoring of vital signs Status: Acute (3) Dehydration: -On IVF hydration Status: Acute (4) CAROLEE (acute kidney injury): -CAROLEE on CKD stage 2 -baseline Cr < 1.0 -likely related to dehydration -on IVF hydration -avoid nephrotoxins, renally dose meds; hold hydrochlorothiazide and Celebrex -continue to monitor renal function -monitor urine output Status: Acute (5) Chronic migraine without aura, intractable, with status migrainosus: -Follows up with Dr. Fish for Botox injections, last given on 09/19 Status: Chronic (6) Essential tremor: -On primidone Status: Chronic (7) Parkinson disease: -Fall precautions Status: Chronic Additional A&P Information -Morbid obesity: BMI-36 kg/m2 -CKD stage 2 -regular diet as tolerated -DVT ppx with heparin -Dispo: home -Code status: FULL code Attestations Medical Necessity Statement*: Patient requires hospitalization for continued treatment of dehydration, bradycardia, acute renal impairment on IV fluid hydration. Time Spent in Patient Care: Greater than 35 minutes (>than 50% of time spent in counselling and/or direct pt care on unit) . Coding Level of Care Code Acute Certified Fraud Examiner for Elio Fwd Exam Comprehensive Diagnoses Bradycardia R00.1 Dizziness R42 Dehydration E86.0 CAROLEE (acute kidney injury) N17.9 Chronic migraine without aura, intractable, with status migrainosus G43.711 Essential tremor G25.0 Parkinson disease G20
--- NOTE | 2019-09-27 09:22 | US_ITS ---
WS: [id number] Bilateral renal ultrasound, 09/27/2019 Clinical Data: acute renal failure Comparison: None. Findings: The right kidney measures 12.1 cm x 5.8 cm x 5.4 cm and the left kidney is 12.2 cm x 5.0 cm x 5.6 cm. There are no cysts, masses or hydronephrosis. The renal cortical margin is normal. No renal calculi are seen. The abdominal aorta and inferior vena cava show no vascular abnormalities. The bladder was scanned and was not remarkable. US/US renal BI with bladder Impression: Negative bilateral renal ultrasound.
--- NOTE | 2019-09-27 09:37 | PC.NURSE ---
medications confirmed with patient.
[2019-09-27 10:19] LABS: Troponin 5 6HR 13.02 ng/L (0-15)
[2019-09-27 10:55] LABS: Add Urine Microscopic? NO
--- NOTE | 2019-09-27 10:59 | PC.NURSE ---
patient has some mild dizziness upon sitting up in bed patient educated to change positions slowly patient verbalized understanding and sat on side of bed for a few moments before attempting to stand. patient assisted to restroom patient tolerated well HR up to the 60s with ambulation
[2019-09-27 11:24] LABS: Bilirubin Urine Neg (NEGATIVE); Blood Urine Neg (Negative); Glucose Urine UA Norm (Normal); Ketones Urine Negative (Negative); Leukocyte Esterase Urine Negative (Negative); Nitrate Urine Negative (Negative); Protein Urine Neg (Negative); Urine Appearance Clear (CLEAR); Urine Color Yellow (Yellow); Urobilinogen Urine Norm (Negative); pH Urine 5 (5-7)
--- NOTE | 2019-09-27 19:35 | PC.NURSE ---
Received report from Marissa Gan RN. Patient resting in bed watching tv and reading a book. Patient denies discomfort or needs at this time. No distress observed. Discussed plan for tonight. Patient verbalized understanding. Assessment completed as documented.
--- NOTE | 2019-09-27 23:10 | PC.NURSE ---
Patient up to ambulate in halls with BIODIESEL PLANT MANAGER at side. Patient ambulated ~400ft. Denies any dizziness or lightheadedness. No distress observed.
[2019-09-28] VITALS: BP 127/81; PULSE 63; RESP 19; TEMP 36.8; O2SAT 95
--- NOTE | 2019-09-28 03:03 | PC.NURSE ---
Observed patient heart dropping in the low 40s during sleep. No distress observed at this time.
[2019-09-28 04:00] VITALS: BP 118/83; PULSE 54; RESP 15; TEMP 36.8; O2SAT 94
[2019-09-28 05:19] LABS: Basophils % 0.9 %; Eosinophils # 0.3 10^3/uL (0.0-0.8); Eosinophils % 6.6 %; Hematocrit 39.6 % (42.0-52.0); Lymphocytes # 2.1 10^3/uL (0.8-4.8); Lymphocytes % 43.8 %; Mean Corpuscular HGB Conc 32.8 g/dL (30.0-36.0); Mean Corpuscular Hemoglobin 29.7 pg (28.0-34.0); Mean Corpuscular Volume 90.6 fL (80-94); Mean Platelet Volume 9.9 fL (7.4-10.4); Monocytes # 0.3 10^3/uL (0.2-0.9); Monocytes % 6.4 %; Neutrophils # 1.98 10^3/uL (1.8-7.7); Neutrophils % 42.1 %; Nucleated Red Blood Cells % 0 %; Platelet Count 244 10^3/cmm (130-400); Red Blood Count 4.37 10^6/uL (4.1-5.3); Red Cell Distribution Width 12.1 % (12.1-15.1); White Blood Count 4.7 10^3/uL (4.0-10.0)
[2019-09-28] MEDS: heparin 5,000 unit/mL INJ 1 mL 5000 UNIT SUBCUT (05:31)
[2019-09-28 05:44] LABS: Anion Gap 15.2 (5-19); Blood Urea Nitrogen 27 mg/dL (6-20); Calcium 8.7 mg/dL (8.5-10.5); Carbon Dioxide 19 mmol/L (22-29); Chloride 109 mmol/L (98-107); Glomerular Filtration Rate 42.7 mL/min (90-130); Glucose 89 mg/dL (65-115); Osmolality Calculated 284 mOsm/kg (285-295); Potassium 4.2 mmol/L (3.5-5.1); Sodium 139 mmol/L (136-145)
[2019-09-28] MEDS: primidone 50 mg Tablet PO (08:10)
[2019-09-28] MEDS: venlafaxine ER (24HR) 75 mg Capsule 225 MG PO (08:10)
[2019-09-28] MEDS: gemfibrozil 600 mg Tablet PO (08:10)
[2019-09-28 08:14] VITALS: BP 126/74; PULSE 62; RESP 13; O2SAT 95
[2019-09-28] MEDS: sodium chloride 0.9% 1,000 ML 75 ML IV (08:39)
--- NOTE | 2019-09-28 09:39 | PC.CHAP ---
Pastoral Care Encounter/Spiritual Assessment Type of Contact [] Declined health advocate visit [] Patient/Family/Request visit [] Outpatient visit [] Follow-up visit [] Physician referral [] Code/Alert [x] Routine visit [] Staff referral [] Actively dying [] Patient sleeping [] Family support [] [] Out of room [] Palliative care [] [] Receiving care in room [] Pre-surgical visit [] Trauma [] Long length of stay [] ICU visit [] Other: Relational/Emotional Strength [] Patient feels connected with others/family/visitors/staff [] Distress [] Loneliness/isolation [] Abandonment Spirituality of Patient [] Person of [place] [] Attends Pentecostalism of their [place] [] Believes in Prayer [] Reads Bible or Faith materials [] There are Spiritual issues to be addressed Performance Test Architect Interventions [x] Prayer [x] Active listening [x] Non-anxious presence [x] Spiritual/emotional support [] Crisis/trauma care [] Spiritual counseling [] Bereavement support [] Provided bereavement packet [] Provided Bible/devotional materials [] Provided toy/stuffed animal, coloring book to patient or family member [] Provided Communion [] Anointing/[place] [] Salvation [x] Completed spiritual assessment [] Other: Impact on Illness or Injury [] Angry [] Fearful [] Anxious [] Often cries [] Exhaustion [] Unable to work [] Unable to attend latter-day [] Unable to walk/stand [] Unable to read [] Unable to drive [] Unable to eat/drink [] Unable to sleep [] Unable to be with family [] Patient intubated [] Other: Summary Patient seems to have some confusion.. no sure if he has seen doctor.. not sure why he falls. Time spent with patient 10 min
--- NOTE | 2019-09-28 10:05 | PC.NURSE ---
patient reports he feels much better this am after continued IV fluids, patient reports good urination although refuses to use the urinal for accurate I&O
--- NOTE | 2019-09-28 10:30 | PM.PN ---
Subjective Subjective: Interval history: Noted improvement in renal function with creatinine at 1.7 today, has been voiding well but refuses to use urinal for accurate ins and outs. Hemodynamically stable, afebrile, heart rate has remained in the 50-60 range consistently. Renal ultrasound unremarkable. Patient states that he has been ambulating off and on throughout the night and this morning. Noted to have appropriate increase in heart rate with activity, feels much better and would like to go home today. Explained need for continued hydration and close follow-up with primary care provider to repeat renal function. Also recommended discontinuation of diuretics. Medications: Reviewed: Yes Medication Review Details: Active Medications Generic Name Dose Route Start Last Admin Trade Name Freq PRN Reason Stop Dose Admin Cyproheptadine HCl 4 mg 09/27/19 21:00 09/27/19 20:32 Periactin PO 4 mg BEDTIME SARITHA Administration Gemfibrozil 600 mg 09/27/19 09:00 09/28/19 08:10 Lopid PO 600 mg BID SARITHA Administration Heparin Sodium (Be ef Lung) 5,000 unit 09/27/19 06:30 09/28/19 05:31 Heparin SUBCUT 5,000 unit Q8H SARITHA Administration Sodium Chloride 1,000 mls @ 75 ml s/hr 09/27/19 06:02 09/28/19 08:39 Sodium Chloride 0.9% IV 75 mls/hr .[id number] SARITHA Administration Primidone 50 mg 09/27/19 09:00 09/28/19 08:10 Mysoline PO 50 mg BID SARITHA Administration Venlafaxine HCl 225 mg 09/27/19 09:00 09/28/19 08:10 Effexor Xr PO 225 mg DAILY SARITHA Administration valproic acid Allergy (Verified 09/27/19 05:08) unkown Vitals/I&O/Wt Last Vital Signs Temp 98.3 F 09/28/19 04:00 Pulse 62 09/28/19 08:14 Resp 13 09/28/19 08:14 BP 126/74 09/28/19 08:14 Pulse Ox 95 09/28/19 08:14 09/27/19 09/28/19 09/28/19 22:59 06:59 14:59 Intake Total 1480 / 1480 1270 / 1270 Balance 1480 / 880 1270 / 1270 Weight last 48 hrs Weight 102.058 kg Physical Exam Const: COMMON NORMALS: no acute distress and patient oriented x3 GENERAL APPEARANCE: cooperative and comfortable NUTRITIONAL APPEARANCE: obese morbidly obese ORIENTATION/CONSCIOUSNESS: Yes awake HENMT: COMMON NORMALS: normocephalic, atraumatic, hearing grossly normal bilaterally and moist oral mucous membranes HEAD & SCALP: normocephalic and atraumatic Eye: COMMON NORMALS: Equal, round and reactive pupils present, EOMs intact bilaterally and conjunctivae normal CONJUNCTIVA: Yes conjunctivae normal PUPIL: Yes Equal, round and reactive pupils present Neck/C-Spine: COMMON NORMALS: full ROM GENERAL: Yes normal visual inspection and Yes trachea midline Resp: COMMON NORMALS: normal respiratory effort, No retractions, No use of accessory muscles and clear to auscultation bilaterally EFFORT & INSPECTION: Yes able to speak in complete sentences, Yes symmetric chest movement and No tachypneic AUSCULTATION: clear to auscultation bilaterally Cardio: COMMON NORMALS: regular rhythm, S1 normal heart sound present, S2 normal heart sound present and No murmurs present (Cardio) RATE: bradycardic (Appropriate chronotropic response with activity) RHYTHM: regular rhythm HEART SOUNDS: S1 normal heart sound present and S2 normal heart sound present GI: COMMON NORMALS: Normal to inspection, nondistended, normoactive bowel sounds present, Soft to palpation and non-tender INSPECTION: Yes central obesity PALPATION: Yes Soft to palpation Extremity: COMMON NORMALS: normal to inspection, full ROM and no clubbing, cyanosis or edema; negative for no pedal edema Neuro: COMMON NORMALS: patient oriented x3, moves all extremities, no focal motor deficits and no sensory deficits noted Psych: COMMON NORMALS: mental status grossly normal, Normal thought process present, cooperative, normal affect and speech normal SPEECH: Yes normal speech THOUGHT PROCESS: Normal thought process present Skin: COMMON NORMALS: no rashes or lesions noted, no jaundice, no petechiae and no mottling GENERAL SKIN EXAM: no rashes or lesions noted Data : 09/28/19 04:13 09/28/19 04:13 A&P Assessment and plan (1) Bradycardia: -Noted to be bradycardic with heart rates in the 50s, received 0.5 mg dose of atropine x1 with some improvement in heart rate, currently in the 60s. -Per review of [employer] records has been bradycardic in the past with heart rates in the 40s, baseline heart rate seems to be in the 50-60 range. He has had an event monitor done in 05/2011 showing sinus rhythm and sinus bradycardia, no noted arrhythmia -Telemetry monitoring -No baseline echo, EF=67%, no RWMA -Continued monitoring of vital signs -Has not been on any beta-blockers or other agata blocking agents Status: Acute (2) Dizziness: -Could be related to dehydration and bradycardia with noted hypotension -On IV fluid hydration -Fall precautions -Continued monitoring of vital signs Status: Acute (3) Dehydration: -On IVF hydration Status: Acute (4) CAROLEE (acute kidney injury): -CAROLEE on CKD stage 2 -baseline Cr < 1.0 -likely related to dehydration -on IVF hydration -avoid nephrotoxins, renally dose meds; hold hydrochlorothiazide and Celebrex -continue to monitor renal function; significant improvement noted today -voiding independently without difficulty, refuses to use urinal for accurate ins and outs Status: Acute (5) Chronic migraine without aura, intractable, with status migrainosus: -Follows up with Dr. Fish for Botox injections, last given on 09/19 Status: Chronic (6) Essential tremor: -On primidone Status: Chronic (7) Parkinson disease: -Fall precautions Status: Chronic Additional A&P Information -Morbid obesity: BMI-36 kg/m2 -CKD stage 2 -regular diet as tolerated -DVT ppx with heparin -Dispo: home -Code status: FULL code Attestations Medical Necessity Statement*: Discharge home today with close primary care provider follow-up and labs. Time Spent in Patient Care: 16 - 35 minutes (>than 50% of time spent in counselling and/or direct pt care on unit). 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
--- NOTE | 2019-09-28 11:58 | PM.DCS ---
Discharge Providers Date of Admission: 09/27/19 04:39 Date of Discharge: September 28, 2019 Attending Provider at Admission: Santhosh Lainez MD Attending Provider at Discharge: Cookie Michel MD Consults: None Primary Care Provider: Levi Toribio Diagnoses at Discharge Discharge Diagnosis (1) Bradycardia: Status: Chronic Problem details: -Noted to be bradycardic with heart rates in the 50s, received 0.5 mg dose of atropine x1 with some improvement in heart rate, currently in the 60s. -Per review of old [employer] records has been bradycardic in the past with heart rates in the 40s, baseline heart rate seems to be in the 50-60 range. He has had an event monitor done in 05/2011 showing sinus rhythm and sinus bradycardia, no noted arrhythmia -Telemetry monitoring -No baseline echo, EF=67%, no RWMA -Continued monitoring of vital signs -Has not been on any beta-blockers or other agata blocking agents (2) Dizziness: Status: Acute Problem details: -Could be related to dehydration and bradycardia with noted hypotension -On IV fluid hydration -Fall precautions -Continued monitoring of vital signs (3) Dehydration: Status: Resolved (4) CAROLEE (acute kidney injury): Status: Acute Problem details: -CAROLEE on CKD stage 2 -baseline Cr < 1.0 -likely related to dehydration -on IVF hydration -avoid nephrotoxins, renally dose meds; hold hydrochlorothiazide and Celebrex -continue to monitor renal function; significant improvement noted today -voiding independently without difficulty, refuses to use urinal for accurate ins and outs (5) Chronic migraine without aura, intractable, with status migrainosus: Status: Chronic Problem details: -Follows up with Dr. Fish for Botox injections, last given on 09/19 (6) Essential tremor: Status: Chronic Problem details: -On primidone (7) Parkinson disease: Status: Chronic Reason for Visit Reason for Visit: FALL Hospital Course Hospital Course: Patient was admitted to the cardiac stepdown unit and placed on telemetry secondary to finding of bradycardia. Per review of medical records and per patient report this is chronic and he has had a positive chronotropic response with exertion with noted bradycardia primarily during rest and at nighttime. He was noted to have acute renal impairment secondary to dehydration and recent introduction of diuretics for blood pressure control. Telemetry shows sinus bradycardia. His blood pressure here has been well controlled without treatment and with hydration his renal function has improved. He is feeling much better and would like to go home today. Discussed need for continued hydration primarily with water, and need for close follow-up with his primary care provider including a repeat BMP to continue to monitor his renal function. I anticipate that his renal function will trended down and normalize in the next several days. He is advised to seek medical attention immediately should he have recurrent symptoms. He is to continue to follow-up with Dr. Fish for his Botox injections secondary to chronic migraines. Physical Exam Const: COMMON NORMALS: no acute distress and patient oriented x3 GENERAL APPEARANCE: cooperative and comfortable NUTRITIONAL APPEARANCE: obese morbidly obese ORIENTATION/CONSCIOUSNESS: Yes awake HENMT: COMMON NORMALS: normocephalic, atraumatic, hearing grossly normal bilaterally and moist oral mucous membranes HEAD & SCALP: normocephalic and atraumatic Eye: COMMON NORMALS: Equal, round and reactive pupils present, EOMs intact bilaterally and conjunctivae normal CONJUNCTIVA: Yes conjunctivae normal PUPIL: Yes Equal, round and reactive pupils present Neck/C-Spine: COMMON NORMALS: full ROM GENERAL: Yes normal visual inspection and Yes trachea midline Resp: COMMON NORMALS: normal respiratory effort, No retractions, No use of accessory muscles and clear to auscultation bilaterally EFFORT & INSPECTION: Yes able to speak in complete sentences, Yes symmetric chest movement and No tachypneic AUSCULTATION: clear to auscultation bilaterally Cardio: COMMON NORMALS: regular rhythm, S1 normal heart sound present, S2 normal heart sound present and No murmurs present (Cardio) RATE: bradycardic (Appropriate chronotropic response with activity) RHYTHM: regular rhythm HEART SOUNDS: S1 normal heart sound present and S2 normal heart sound present GI: COMMON NORMALS: Normal to inspection, nondistended, normoactive bowel sounds present, Soft to palpation and non-tender INSPECTION: Yes central obesity PALPATION: Yes Soft to palpation Extremity: COMMON NORMALS: normal to inspection, full ROM and no clubbing, cyanosis or edema; negative for no pedal edema Neuro: COMMON NORMALS: patient oriented x3, moves all extremities, no focal motor deficits and no sensory deficits noted Psych: COMMON NORMALS: mental status grossly normal, Normal thought process present, cooperative, normal affect and speech normal SPEECH: Yes normal speech THOUGHT PROCESS: Normal thought process present Skin: COMMON NORMALS: no rashes or lesions noted, no jaundice, no petechiae and no mottling GENERAL SKIN EXAM: no rashes or lesions noted Discharge Data Data Completed and Pending: Completed Studies During Hospitalization Category Date Time Status CT head wo con* 7 [id number] Urgent Cat Scan 09/27/19 02:51 Completed XR chest 1V maria c ble [id number] Stat Exams 09/27/19 02:51 Completed CV echo complete* [id number] Routine Ultrasound 09/27/19 06:02 Completed US renal BI with bladder Routine Ultrasound 09/27/19 09:22 Completed Pending at discharge Category Date Time Status Basic Metabolic P jeromy AM LABS Lab 09/29/19 04:00 Ordered Labs from last 24 hours 09/28/19 09/28/19 04:13 04:13 WBC 4.7 RBC 4.37 Hgb 13.0 Hct 39.6 L MCV 90.6 MCH 29.7 MCHC 32.8 RDW 12.1 Plt Count 244 MPV 9.9 Neut % (Auto) 42.1 Lymph % (Auto) 43.8 [place] % (Auto) 6.4 Eos % (Auto) 6.6 Baso % (Auto) 0.9 Neut # (Auto) 1.98 Lymph # (Auto) 2.1 [place] # (Auto) 0.3 Eos # (Auto) 0.3 Baso # (Auto) 0.0 Nucleated RBC % (a uto) 0 Nucleated RBCs # 0.0 Sodium 139 Potassium 4.2 Chloride 109 H Carbon Dioxide 19 L Anion Gap 15.2 BUN 27 H Creatinine 1.7 H GFR Calculation 42.7 L Glucose 89 Calculated Osmolal ity 284 L Calcium 8.7 Vitals: Last Vital Signs Temp 98.3 F 09/28/19 04:00 Pulse 62 09/28/19 08:14 Resp 13 09/28/19 08:14 BP 126/74 09/28/19 08:14 Pulse Ox 95 09/28/19 08:14 Discharge Plan Discharge Patient Disposition: Home Condition: Stable Prescriptions: Continued primidone 50 mg tablet 50 mg PO BID RF: 0 gemfibrozil 600 mg tablet 600 mg PO BID RF: 0 melatonin 3 mg capsule 6 mg PO .HS RF: 0 cyproheptadine 4 mg tablet 4 mg PO .HS RF: 0 prazosin 2 mg capsule 4 mg PO .HS RF: 0 venlafaxine 75 mg capsule,extended release 24hr 150 mg PO DAILY RF: 0 hydroxyzine HCl 25 mg tablet 25 mg PO .HS RF: 0 celecoxib 200 mg capsule 200 mg PO DAILY RF: 0 mirtazapine 30 mg tablet 30 mg PO .HS RF: 0 venlafaxine 75 mg Capsule,Extended Release 24hr 75 mg PO QPM RF: 0 Discharge Orders: Discharge Order (Routine); Ordered 09/28/19 Ordered By: Cookie Michel Referrals: Levi Toribio [Primary Care Provider] - 1-3 days (Post hospital discharge follow up. Needs follow up BMP to continue to monitor renal function. ) Discharge Diet: Regular Discharge Activity: Increase activity as tolerated Activity Restrictions/Additional Instructions: -Please seek medical attention immediately if symptoms persist or worsen -Please continue to hydrate appropriately with water at home. Please avoid overexertion particularly in the heat. Discharge Attestations Time Spent in Discharge Care*: greater than 30 min Specific Discharge Activities: Specific discharge activities: educating patient, discussing with wrapper caser/social workers/dc planners, documenting/other paperwork and evaluating patient/reviewing data Status at Discharge: Cognitive status at discharge: cognitively intact, Behavioral status at discharge: cooperative, Functional status at discharge: independent ambulation Overall status at discharge: patient is progressing back to baseline Quality Metrics Clinical Quality Measures During this hospital stay, did patient experience: None Coding Level of Care Code 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
[2019-09-28 13:14] VITALS: BP 141/93; PULSE 60; RESP 18; O2SAT 95
[2019-09-28 13:15] VITALS: BP 141/93; PULSE 60; RESP 18; O2SAT 95
== END 2019-09-28 13:25 | disposition home or self-care (01) | DRG 309 ==
LOC: ER 04:45 → CSU 04:47
PROVIDERS: Emergency Medicine; Admitting Provider Internal Medicine; PCP Internal Medicine; Visit Provider Family Medicine
DX: R00.1 Bradycardia, unspecified (principal); N17.9 Acute kidney failure, unspecified; E86.0 Dehydration; N18.2 Chronic kidney disease, stage 2 (mild); G20 Parkinson's disease; I95.9 Hypotension, unspecified; G43.711 Chronic migraine without aura, intractable, with status migrainosus; F32.9 Major depressive disorder, single episode, unspecified; Z91.81 History of falling; T50.2X5A Adverse effect of carbonic-anhydrase inhibitors, benzothiadiazides and other diuretics, initial encounter; Y92.009 Unspecified place in unspecified non-institutional (private) residence as the place of occurrence of the external cause
CPT/HCPCS: 12345; 36415; 70450; 71045; 76770; 76857; 80048; 80053; 81003; 83605; 84443; 84484; 85025; 85610; 93005; 93306; 96372; 96375; 99283; J0461; J1644; J7030

== ENCOUNTER 2019-11-07 14:02 | Outpatient (CLI) | payer OTHER, SELFPAY ==
--- NOTE | 2019-11-07 14:27 | MR_ITS ---
WS: [id number] MRI CERVICAL SPINE NONCONTRAST TECHNIQUE: Sagittal T1, T2 and STIR imaging. Axial T2, gradient, and fiesta imaging. CLINICAL INFORMATION: CERVICALGIA COMPARISON: None. FINDINGS: Straightening of the normal cervical lordosis. No high-grade central canal narrowing. Cord signal is normal. C2-C3: Normal. C3-C4: Mild left and no significant right foraminal narrowing. Mild facet arthropathy. Spinal canal i s patent. C4-C5: Slight retrolisthesis C4 on C5. Mild left and no significant right foraminal narrowing. Mild f acet arthropathy. C5-C6: Mild disc bulging and osteophytic ridging. Moderate left and mild right bony foraminal narrowi ng. Mild central canal stenosis. C6-C7: Disc osteophyte complex with endplate ridging. Moderate right greater than left bony foraminal narrowing. Mild facet arthropathy. Mild central canal stenosis. C7-T1: Disc osteophytic ridging. Mild left greater than right bony foraminal narrowing. Spinal canal is patent. Visualized brain stem structures: Normal. Prevertebral soft tissues: Normal. MR/MR cervical spin wo con* [id number] IMPRESSION: 1. Straightening of the normal cervical lordosis. No high-grade central canal stenosis. Cord signal is normal. 2. Mild central canal stenosis C5-C6 and C6-C7 with disc osteophyte complexes. 3. Multilevel moderate bony foraminal narrowing worse at left C4-C5, left C5-C 6 and bilateral C6-C7.
--- NOTE | 2019-11-07 14:27 | XR_ITS ---
WS: [id number] CERVICAL SPINE FLEXION EXTENSION TECHNIQUE: 3 views of the cervical spine: lateral neutral, flexion and extension views. CLINICAL INFORMATION: CERVICALGIA COMPARISON: None. FINDINGS: Normal alignment on the neutral view. Normal alignment on the flexion views. Normal alignment in extension. Mild spondylitic changes. Mild disc space narrowing worse at C5-C6 and C6-C7. Posterior elements are normal. No other significant findings. XR/XR cervical spine fl/ex [id number] IMPRESSION: No instability on flexion-extension.
== END 2019-11-07 14:03 | disposition home or self-care (01) ==
LOC: RADWPI 14:05
PROVIDERS: Visit Provider Anesthesiology Pain Medicine
DX: M54.2 Cervicalgia (principal); M48.02 Spinal stenosis, cervical region; M25.78 Osteophyte, vertebrae
CPT/HCPCS: 72040; 72141

== ENCOUNTER 2019-12-19 07:07 | Outpatient (CLI) | payer OTHER, SELFPAY ==
--- NOTE | 2019-12-19 07:11 | ECG_ITS ---
[facility] Test Date: 2019-12-19 Pat Name: Sae Zavala Department: Room: Gender: Male Director Of Integrated Marketing: : 1965 Requested By: Raheem Ortega Order Number: [id number] Paramjit MD: Raheem Ortega M.D. Interpretive Statements NAME OF STUDY: LEXISCAN SESTAMIBI STRESS TEST INDICATION: [syncope, ] Procedure: At the baseline the blood pressure was 124/99 mmHg, with a heart rate of 63 bpm. The electrocardiogram showed normal sinus rhythm, normal axis with normal ST and T's. The Lexiscan was infused over the period Of 20 seconds. A total of 0.4 mg of Lexiscan was infused. The stress phase was continued for a total of 5 minutes. Heart rate at the end of stress phase was 61 bpm, with a blood pressure of 131/72 mmHg. The EKG at the peak infusion revealed sinus tachycardia with no significant ST-T wave changes. Sestamibi was injected 20 seconds after Lexiscan infusion. Blood pressure at the end of recovery phase was 130/82 mmHg, with a heart rate of 53 bpm. EKG showed sinus tachycardia without significant ST???T wave changes. Conclusion: 1. Normal EKG response to Lexiscan infusion. 2. No Lexiscan induced chest pain or cardiac arrhythmia. 3. Normal blood pressure and heart rate response. 4. Sestamibi/sestamibi perfusion scan pending; see separate report. Electronically Signed On 12-22-2019 19:47:07 CDT by Raheem Ortega M.D. [email or web address]
--- NOTE | 2019-12-19 07:12 | NMCV_ITS ---
NM jazzy perf SPECT r/s* [id number] Sae Zavala Age: 54 Gender: M : 1965 Exam Date: 12/19/2019 08:22 Ordering Phys: Raheem Ortega M.D ([email or web address]) Technologist: NICKY Navarro Exam Location: [facility] Indications: Syncope STRESS TEST [facility] IMAGE PROTOCOL Rest/Stress 1 Lexiscan Day Radiopharmaceutical Dose (mCi) Administration Site Administered by Rest: Tc-99m 11.0 IV NICKY Navarro Sestamibi Stress:Tc-99m 32.6 IV NICKY Mayers Sestamibi Rest: 19-Dec-2019 60 Discovery 630 Stress: 19-Dec-2019 60 Discovery 630 0.4mg Lexiscan. Images obtained in supine and prone position. SPECT RESULTS Technical Quality: Good Raw Data Analysis: Normal Image Corrections: No attenuation or motion correction applied Summed Stress Score: 0 Summed Rest Score: 0 Summed Difference Score: 0 PERFUSION FINDINGS Small in size and mild in severity, perfusion defect is noted in the anterior wall. This could represent attenuation artifact but can not rule out ischemia FUNCTIONAL RESULTS (calculated via Gated SPECT) Stress Image LV EF (%): 68 Stress EDV (mL):110 TID: 1 Stress ESV (mL):35 FUNCTIONAL FINDINGS: There is normal left ventricular systolic function. IMPRESSIONS 1. There is a small area of reversible perfusion defect noted in the anterior wall. This could represent attenuation artifact but can not rule out ischemia. Clinical correlation is required. 2. LV systolic function is normal. Raheem Ortega MD (Electronically Signed) Final Date: 24 December 2019 08:47 S
[2019-12-19 07:30] VITALS: BMI 33.3
[2019-12-19] MEDS: regadenoson 0.4 Mg/5 ml Syringe IVP (09:18)
[2019-12-19 09:38] VITALS: BP 130/82; PULSE 53
== END 2019-12-19 07:08 | disposition home or self-care (01) ==
LOC: CDL 07:10
PROVIDERS: PCP Family Medicine; Visit Provider Internal Medicine
DX: R55 Syncope and collapse (principal); R94.39 Abnormal result of other cardiovascular function study
CPT/HCPCS: 78452; 93017; A9500; J2785

== ENCOUNTER → 2019-12-31 15:08 | Outpatient (BNVA) | payer OTHER, SELFPAY | PROVIDERS: PCP Family Medicine; Visit Provider Internal Medicine | DX: Z11.59 Encounter for screening for other viral diseases (principal) | CPT/HCPCS: 87635 ==

== ENCOUNTER 2020-01-03 08:22 | Day surgery (SDC) | payer OTHER, SELFPAY ==
[2019-12-31 12:22] LABS: Basophils % 0.5 %; Eosinophils # 0.2 10^3/uL (0.0-0.8); Hematocrit 43.2 % (42.0-52.0); Hemoglobin 14.1 g/dL (11.7-16.6); Lymphocytes # 1.4 10^3/uL (0.8-4.8); Lymphocytes % 32.5 %; Mean Corpuscular HGB Conc 32.6 g/dL (30.0-36.0); Mean Corpuscular Hemoglobin 29.1 pg (28.0-34.0); Mean Corpuscular Volume 89.3 fL (80-94); Mean Platelet Volume 9.6 fL (7.4-10.4); Monocytes # 0.3 10^3/uL (0.2-0.9); Monocytes % 5.9 %; Neutrophils # 2.35 10^3/uL (1.8-7.7); Neutrophils % 55.6 %; Nucleated Red Blood Cells % 0 %; Platelet Count 209 10^3/cmm (130-400); Red Blood Count 4.84 10^6/uL (4.1-5.3); Red Cell Distribution Width 12.7 % (12.1-15.1); White Blood Count 4.2 10^3/uL (4.0-10.0)
[2019-12-31 12:43] LABS: INR 1.08 (0.83-1.21); Prothrombin Time (Patient) 14.3 Seconds (12.0-15.1)
[2019-12-31 12:44] LABS: Anion Gap 15.3 (5-19); Blood Urea Nitrogen 12 mg/dL (6-20); Calcium 9.5 mg/dL (8.5-10.5); Carbon Dioxide 21 mmol/L (22-29); Chloride 104 mmol/L (98-107); Glomerular Filtration Rate 88.6 mL/min (90-130); Glucose 135 mg/dL (65-115); Osmolality Calculated 286 mOsm/kg (285-295); Potassium 3.3 mmol/L (3.5-5.1); Sodium 137 mmol/L (136-145)
[2020-01-02 14:26] VITALS: BMI 37.3
[2020-01-03] VITALS (16 sets, daily range): BP systolic 89–120; BP diastolic 58–83; PULSE 46–65; RESP 18; TEMP 36.8; O2SAT 93–98
[2020-01-03] MEDS: diphenhydrAMINE 50 mg Capsule PO (08:53)
--- NOTE | 2020-01-03 09:44 | PM.HP ---
Providers/Chief Complaint Primary Care Provider: Dora Perez MD Chief Complaint: dont see Diagnosis History of Present Illness 54-year-old man with past medical history of depression, migraines, hypertension was [place] from [place] with chief complaint of syncope. According to the patient he had 3 episodes of syncope during the last 9 months. Last 1 was in September when he was admitted to [facility]. He was found to be dehydrated at the time and had CAROLEE which improved with IV hydration. On all 3 occasions he did not have warning signs prior to passing out and falling down. 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 His blood pressure today is 130/70 mmHg. He is off of all antihypertensive medications. An echocardiogram was done during the hospital admission that showed normal ejection fraction of 60 to 65%. Grade 2 diastolic dysfunction was noted. He has noted occasional chest tightness. He underwent nuclear stress test that showed anterior wall perfusion defect. Given his syncope, and his and abnormal stress test we have planned to proceed with coronary angiography with possible percutaneous coronary intervention. Today patient is feeling well. He says he has been having chest discomfort but because he gets pain throughout his body it is hard to differentiate if it is different than his chronic pains. Review of Systems Narrative: CONSTITUTIONAL: No fever chills weight loss or gain or night sweats. [] HEENT: Normocephalic, atraumatic.[] RESPIRATORY: No cough, sputum, hemoptysis or wheezing.[] CARDIOVASCULAR: No shortness of breath, chest pain, PND, orthopnea, lower extremity edema, presyncope or syncope. [] GI: no nausea vomiting diarrhea. [] PHARMACY SALESPERSON: No numbness, tingling, weakness or loss of function in any part of the body. [] MUSCULOSKELETAL: No knee or joint pain or rashes. [] Medications/Allergies Home Medications Medication Instructions Recorded Confirmed Last Taken Type gemfibrozil 600 mg tablet 600 mg PO BID 03/22/19 01/03/20 01/02/20 20:30 History hydroxyzine HCl 25 mg tablet 25 mg PO .HS tab 03/22/19 01/03/20 01/02/20 20:30 History melatonin 3 mg capsule 6 mg PO .HS cap 03/22/19 01/03/20 01/02/20 20:30 History mirtazapine 30 mg tablet 60 mg PO .HS tab 03/22/19 01/03/20 01/02/20 20:30 History prazosin 2 mg capsule 2 mg PO .HS cap 03/22/19 01/03/20 01/02/20 20:30 History primidone 50 mg tablet 50 mg PO BID tab 03/22/19 01/03/20 01/02/20 20:30 History venlafaxine 75 mg PO TID 09/27/19 01/03/20 01/02/20 20:30 History cholecalciferol (vitamin D3) 50 50 mcg PO BID cap 11/27/19 01/03/20 01/02/20 20:30 History mcg (2,000 unit) capsule turmeric root extract 500 mg 1,000 mg PO DAILY 11/27/19 01/03/20 01/02/20 08:30 History capsule Allergies Allergy/AdvReac Type Severity Reaction Status Date / Time valproic acid Allergy unkown Verified 09/27/19 05:08 PFSH Acute PFSH: Medical History Bradycardia Ch mgr wo marilyn w ntr w st Chronic migraine without aura, intractable, with status migrainosus -Follows up with Dr. Fish for Botox injections, last given on 09/19 Essential tremor Essential tremor -On primidone Parkinson disease Surgical History History of carpal tunnel release History of cholecystectomy Family History Mother Cancer Grandmother Cancer Other Cerebral palsy Tremor Social History Smoking and tobacco status: never smoked History of recent travel: No Vitals/I&O/Wt Last Vital Signs Temp 98.3 F 01/03/20 08:53 Pulse 65 01/03/20 08:53 Resp 18 01/03/20 08:53 BP 120/83 01/03/20 08:53 Pulse Ox 97 01/03/20 08:53 Weight last 48 hrs Weight 231 lb Physical Exam Narrative: EXAM NARRATIVE: GENERAL: Patient is alert, awake and oriented x3. [] NECK: No jugular vein distension. [] HEENT: No cyanosis. No icterus. No pallor. [] HEART: Regular S1 and S2. No murmur, rub or gallop. [] LUNGS: Clear to auscultate bilaterally. [] ABDOMEN: Soft, nontender and nondistended. Positive bowel sounds. No guarding, rebound or tenderness. [] CENTRAL NERVOUS SYSTEM: Grossly nonfocal. [] EXTREMITIES: Lower extremities with no edema bilaterally. Pulses palpable in the lower extremities, both dorsalis pedis and posterior tibial. [] Data : 12/31/19 12:14 12/31/19 12:14 A&P Assessment and plan (1) Syncope: Status: Acute (2) Abnormal stress test: Status: Acute (3) Chest pain: Status: Acute Patient had multiple episodes of syncope during the last 1 year. His stress test is abnormal and he gets occasional chest pain. We will proceed with coronary angiography with possible percutaneous coronary intervention. I have discussed in detail the benefits and risks including bleeding, infection, abnormal kidney function, heart attack, stroke or with patient. Patient understands the benefits and risks and wants to proceed with the procedure. We will give aspirin 325 now. Attestations Medical Necessity Statement*: Care not expected to cross 2 midnights. Coding Level of Care Code Acute Medical Assistant Dermatology for Elio Pendleton Diagnoses Syncope R55 Abnormal stress test R94.39 Chest pain R07.9
--- NOTE | 2020-01-03 09:57 | XACV_ITS ---
Gender: Male : 1965 Any Known Allergies: No known allergies Exam Priority: Routine Procedure(s): Procedure Description: Diagnostic procedure Procedure Description: Left Heart Catheterization Procedure Description: Coronary Angiography Diagnostic Cath Status: Elective Diagnostic Findings * Left main artery: Luminal irregularities are present. No significant stenosis. LAD: Mild luminal irregularities are noted. It gives rise to a medium sized diagonal branch which is free of significant disease. Distally the apical LAD is small vessel. There is a large septal branch that comes off of the LAD. This is free of significant disease. Left circumflex artery: Gives rise to 2 OM branches. Left circumflex artery system is free of significant disease. RCA: It is a large dominant vessel that arises from right coronary cusp. There is no significant disease noted in the RCA. . * Coronary angiography shows right dominance. Conclusions 1. No significant disease noted in the Left Main, LAD, Circumflex, or RCA coronary arteries. Recommendations * If chest pain persists, can initiate long-acting nitrates. Diagnostic RX Recommendation: medical therapy and/or counseling Anticoagulation: Heparin Pressures Phase:Rest AO : 74 / 61 ( 69 ) @ 5:25:00 AM 90 / 69 ( 73 ) @ 5:33:00 AM 93 / 69 ( 77 ) @ 5:40:00 AM 112 / 86 ( 77 ) @ 5:45:00 AM 91 / 65 ( 74 ) @ 5:45:00 AM LV : 114 / 26 / @ 5:44:00 AM 119 / 3 / @ 5:44:00 AM 120 / 6 / @ 5:45:00 AM Valves Phase:DefaultPhase AV : 13.0 @ 10:53:03 AM AV Mean Gradient: 14.0 @ 10:53:03 AM Clinical Evaluation EBL: 5mL-10mL Procedural Details Pre-Procedure Time Out. Identified patient by full name and date of as verbalized by the patient/guarantor. Does the consent match the physician's order: Yes. Accurate & Complete Informed Consent: Yes. Inpatient/Outpatient History & Physical on Chart: Yes. If H&P is completed, is and addenduem needed: N/A; If yes, is the addendum complete: N/A. Visualize and Verify Site with Patient/Guarantor: N/A. Relevant Radiology Images available: Yes. Pre-op teaching completed and patient verbalized understanding. The risks, benefits, and alternatives of sedation and/or procedure were discussed by physician. The patient agrees to continue. Procedure started. [facility] Clinical Fraility Score: 3: Managing Well. Management Lecturer Indications: Worsening Angina. Chest Pain Symptom Assessment: Typical Angina Symptoms. Correct patient, site and procedure confirmed by cath team. Current diagnosis: Chest Pain. PERRLA. Strong, equal hand returned case inspector bilaterally. Lungs clear x 5 lobes. IV Site on Arrival: 20 gauge in the left anticubital. IV Fluids: 0.9% NaCl at KVO. 0 mL infused prior to laborer wood preserving plant. Pre Procedural Pulses: bilateral dorsalis pedis was 2+. Pre Procedural Pulses: bilateral posterior tibial was 2+. Pre Procedural Pulses: right radial was 3+. Oxygen started at 2liters/min via nasal canula. right groin was prepped with chloroprep then draped in the usual sterile fashion. right radial was prepped with chloroprep then draped in the usual sterile fashion. Baseline sample Acquired. HR: 92 BPM. Physician notified. Physician arrived. Physician scrubbed in. Immediate Pre-Procedure Time Out. Correct Patient: Yes; Correct Procedure: Yes; Correct Site: Yes; Correct Patient Position: Yes; Correct Supplies: Yes; Dried Flammable Prep: Yes; Blood Products Available: N/A;. Lidocaine 1% infiltrated to the right radial. Arterial access obtained. A 5 bahraini TIG catheter in over wire. Multiple views taken of right coronary artery. Catheter removed over the exchange wire. A 5 bahraini JL3.5 catheter in over wire. Multiple views taken of left coronary artery. Catheter removed over the exchange wire. A 5 bahraini JR4 catheter in over wire. EDP Sample taken: LV 114/26,37; HR: 81 BPM; SpO2: 97%. EDP Sample taken: LV 119/3,26; HR: 59 BPM; SpO2: 96%. Pullback taken: LV 120/6,24; AO 112/86(77); Mean: 14mmHg, Peak to Peak: 13mmHg, SEP: 11sec/min; HR: 54 BPM; SpO2: 96%. Catheter removed over the exchange wire. Physician review of cine films. Physician scrubbed out. TR band placed. Hemostasis obtained. Post Procedure: Pulses reassessed and unchanged. Family updated by Dr. Ibrahim. THOMAS. Strong, equal hand returned case inspector bilaterally. No VTE prophylaxis required. Medication's Wasted: Lidocaine 1% = 18 mL. Medication's Wasted: Nitro = 49.8 mcg. Medication's Wasted: Heparin = 1000 units. Total IV fluids: 260 mL. Contrast type used: Omnipaque 300 mgI/mL, 500 mL bottle. Post-op diagnosis: Normal Coronaries. Complications: None. Estimated blood loss: 5mL-10mL. Procedure completed. Patient transferred by wheelchair to 1st floor. Vital chart was stopped. A TR Band was successful obtaining hemostatsis at the Right Radial artery insertion site. Access Site Site: Right Radial artery Sheath Size: 6 Fr Hemostasis Method: TR Band Hemostasis Success: Successful Procedure Medications Start: 10:13 AM Stop: 10:13 AM Medication: Versed Amount: 1 mg Route: I.V. Start: 10:13 AM Stop: 10:13 AM Medication: Fentanyl Amount: 50 mcg Route: I.V. Start: 10:20 AM Stop: 10:20 AM Medication: Nitrogylcerin Amount: 200 mcg Route: I.A. Start: 10:25 AM Stop: 10:25 AM Medication: Heparin Amount: 5000 units Route: I.V. Start: 10:26 AM Stop: 10:26 AM Medication: 0.9% Saline Amount: 250 ml Route: I.V. bolus I, the attending physician, have reviewed and verified all procedure medications. Yes, all medications given per verbal order History/Risk Factors Hypertension: No Dyslipidemia: No Peripheral Arterial Disease (PAD): No Myocardial Infarction (GA): No Obesity: No Renal Disease: No Tobacco Use: Never Prior Interventions PCI: No CABG: No Valve Surgery: No Report Signatures Finalized by Raheem Ortega MD on 01/07/2020 10:57 AM
--- NOTE | 2020-01-03 11:20 | NUR.SHIFT ---
Patient to CSU from vat house laborer at 1100. 2 nurse verification of site, asymptomatic. TR band intact with 10 ml of air. No needs identified at this time. Nurse to continue to monitor.
--- NOTE | 2020-01-03 13:12 | PC.NURSE ---
TR band off at 1300. Incision CDI, no hematoma noted. Dressing applied. Patient re educated on activity restriction. Verbalized understanding. Nurse to continue to monitor.
--- NOTE | 2020-01-03 14:30 | PC.NURSE ---
Patient cleared for dc by Dr. Ortega. Discharge instructions given per the physician's orders. Patient verbalize understanding of teaching and post angiogram home care instructions. IV has been removed. Patient's delivered clothes. Patient dressed self. No further needs identified at this time.
== END 2020-01-03 14:45 | disposition home or self-care (01) ==
LOC: CCL 08:22 → CSU 09:32
PROVIDERS: PCP Family Medicine; Visit Provider Internal Medicine
DX: R55 Syncope and collapse (principal); R94.39 Abnormal result of other cardiovascular function study; R07.9 Chest pain, unspecified; G20 Parkinson's disease
CPT/HCPCS: 12345; 36415; 80048; 85025; 93452; C1769; C1887; C1894; J1644; J2250; J3010; J3490; J7030; Q0163; Q9967

== ENCOUNTER → 2020-01-10 11:00 | Outpatient (BNVA) | payer OTHER, SELFPAY | PROVIDERS: PCP Family Medicine; Visit Provider Nurse Practitioner Family | DX: R94.39 Abnormal result of other cardiovascular function study (principal) | CPT/HCPCS: 80048 ==

== ENCOUNTER → 2020-04-17 08:19 | Outpatient (BNVA) | payer OTHER, SELFPAY | PROVIDERS: PCP Family Medicine; Visit Provider Specialist | DX: G43.711 Chronic migraine without aura, intractable, with status migrainosus (principal); G25.0 Essential tremor | CPT/HCPCS: 64615; 99212; J0585 ==

== ENCOUNTER → 2020-07-17 10:18 | Outpatient (BNVA) | payer OTHER, SELFPAY | PROVIDERS: PCP Family Medicine; Visit Provider Specialist | DX: G43.709 Chronic migraine without aura, not intractable, without status migrainosus (principal); G25.0 Essential tremor | CPT/HCPCS: 64615; 99212; J0585 ==

== ENCOUNTER → 2020-10-09 08:54 | Outpatient (BNVA) | payer OTHER, SELFPAY | PROVIDERS: PCP Family Medicine; Visit Provider Specialist | DX: G43.709 Chronic migraine without aura, not intractable, without status migrainosus (principal); G25.0 Essential tremor | CPT/HCPCS: 64615; J0585 ==

== ENCOUNTER 2021-01-16 20:30 | Emergency (ER) | payer OTHER, SELFPAY ==
[2021-01-16 20:57] VITALS: BP 156/101; PULSE 86; RESP 18; TEMP 36.7; O2SAT 96; BMI 37.5
--- NOTE | 2021-01-16 21:01 | ED_ITS ---
HPI - Trauma General: Chief Complaint: Fall Stated Complaint: Injury Back,Hip and Lt Leg Time Seen by Provider: 01/16/21 21:01 History of Present Illness: HPI narrative: Mr. Zavala is a 55-year-old gentleman with history of back injury who presents emerged from due to fall and trauma. He was trying to secure a homemade approximately 12 foot tree stand. He managed to secure one strap and then it fell and he fell from the top. The all steel frame then fell on him. He managed to crawl approximately 20 feet over the course of an extended period of time back to his truck. He primarily has back pain some pain with inspiration, and left hip pain. These are worse with movement moderate intensity at rest and severe at times. He does have a history of back injury and spinal stimulator. No other specific changes in health or preceding factors identified. Review of Systems General: Reports: 10 or more systems reviewed and unremarkable except in HPI and below PFSH ED PFSH: Medical History Bradycardia Ch mgr wo marilyn w ntr w st Chronic migraine without aura, intractable, with status migrainosus -Follows up with Dr. Fish for Botox injections, last given on 09/19 Essential tremor Essential tremor -On primidone Parkinson disease Syncope Surgical History History of carpal tunnel release History of cholecystectomy Family History Mother Cancer Grandmother Cancer Other Cerebral palsy Tremor Social History Smoking and tobacco status: never smoked History of recent travel: No Physical Exam Narrative: EXAM NARRATIVE: GENERAL/CONSTITUTIONAL - well-appearing. Uncomfortable due to pain. Eyes - PERRL, no conjunctival injection ENMT - Atraumatic external nose and ears. TMs normal. No camacho signs or raccoon eyes. Moist mucous membranes NECK - trachea midline. Tenderness to palpation. CARDIOVASCULAR - regular rate and rhythm. Peripheral pulses 2+ and equal RESPIRATORY -clear to auscultation bilaterally. No retractions or accessory muscle use. CHEST WALL - tenderness to lateral palpation ABDOMEN/GI -generalized tenderness palpation. No evidence of peritonitis. MSK - tenderness to palpation and roll of left hip SKIN - Warm, Dry. Scattered abrasions and contusions NEURO - alert and appropriately oriented. strength and sensation intact. Moves all extremities equally. PSYCH - Appropriate mood and affect Course ED course: - Patient was seen and evaluated by me at bedside - Patient placed on cardiac monitors, IV access obtained - Initial evaluation notable for exam as noted above, moderate degree of distress due to pain. -Symptom treatment ordered. - Imaging notable for no acute traumatic bony or internal injury. - Upon serial reexamination after treatment the patient was improved with analgesia. Patient was able to ambulate. - Based on patient history, evaluation, labs, and imaging as interpreted the most likely cause of the patient's condition is soft tissue injury secondary to trauma. - The results of ED evaluation were discussed with the patient including prescriptions and/or symptomatic cares (if applicable) including appropriate and responsible use, followup plan, and return precautions. The patient verbalized understanding and felt safe for discharge. - Patient discharged in satisfactory condition. Vital Signs: Vital signs: Vital Signs Temperature 98.0 F 01/16/21 20:57 Pulse Rate 77 01/16/21 23:27 Respiratory Rate 18 01/16/21 23:27 Blood Pressure 131/80 01/16/21 23:27 Pulse Oximetry 98 01/16/21 23:27 MDM - Trauma Medical Records: Attestation: I reviewed the patient's medical records. Lab Data: Attestation: I reviewed the patient's lab results. Discharge Plan Discharge Patient Disposition: Home Clinical Impression: Fall Condition: Stable Prescriptions: New oxycodone 5 mg tablet 5 mg PO Q4H PRN (Reason: pain) Qty: 14 RF: 0 No Action primidone 50 mg tablet 50 mg PO BID RF: 0 gemfibrozil 600 mg tablet 600 mg PO BID RF: 0 prazosin 2 mg capsule 2 mg PO .HS RF: 0 hydroxyzine HCl 25 mg tablet 25 mg PO .HS RF: 0 mirtazapine 30 mg tablet 60 mg PO .HS RF: 0 cholecalciferol (vitamin D3) 50 mcg (2,000 unit) capsule 50 mcg PO BID RF: 0 turmeric root extract 500 mg capsule 1,000 mg PO DAILY RF: 0 amlodipine 5 mg tablet 5 mg PO DAILY Qty: 90 RF: 3 venlafaxine 75 mg capsule,extended release 24hr 75 mg PO TID 14 Days Qty: 42 RF: 0 Discharge Orders: Discharge ED (Routine); Ordered 01/16/21 Ordered By: Ángel Marrufo Referrals: Dora Perez MD [Primary Care Provider] - Discharge Diet: Usual diet Discharge Activity: Increase activity as tolerated Patient Instructions: Contusion in Adults (ED), Abrasion (ED), Opioid Safety Activity Restrictions/Additional Instructions: Thank you for visiting the emergency department. You were seen and evaluated for a fall from height. No acute internal or bony injuries were identified. You will be given a prescription for pain medication. Please see the handout, this can cause PROCUREMENT MANAGER depression, constipation, do not operate machinery or perform dangerous tasks while under the influence. You may use [id number] medications in addition to this medication which will likely help your symptoms. Please do not exceed the daily recommended dosage. Please return to the emergency department for uncontrolled pain, new numbness tingling, or anything else that you are concerned about and feel needs emergency department evaluation. Coding Level of Care Code ED Machine Adjuster Helper for Elio Pendleton
--- NOTE | 2021-01-16 21:22 | CTR_ITS ---
PROCEDURE INFORMATION: Exam: CT Chest With Contrast; Diagnostic Exam date and time: 01/16/2021 9:22 PM Age: 55 years old Clinical indication: Injury or trauma; Blunt; Prior surgery; Surgery type: Spinal stimulator; Patient HX: Approximate 12 foot fall out of tree stand. Patient C/O neck pain, left rib pain, and low back pain. TECHNIQUE: Imaging protocol: Diagnostic computed tomography of the chest with contrast. Radiation optimization: All CT scans at this facility use at least one of these dose optimization techniques: automated exposure control; mA and/or kV adjustment per patient size (includes targeted exams where dose is matched to clinical indication); or iterative reconstruction. Contrast material: OMNI 300; Contrast volume: 95 ml; Contrast route: INTRAVENOUS (IV); COMPARISON: CR XR chest 1V portable [id number] 09/27/2019 3:07 AM RADIATION DOSE METRICS: Total DLP (mGy-cm): 2426.24 FINDINGS: Tubes, catheters and devices: Spinal stimulator is in place with leads positioned in thoracic spinal canal. Lungs: Calcified pulmonary granulomatous change. Pleural spaces: Unremarkable. No pneumothorax. No pleural effusion. Heart: Unremarkable. No cardiomegaly. No pericardial effusion. Aorta: Unremarkable. No aortic aneurysm. Lymph nodes: Calcified granulomatous changes are noted in mediastinal and hilar lymph nodes. Bones/joints: No acute fracture. Soft tissues: Unremarkable. IMPRESSION: No acute findings. PROCEDURE INFORMATION: Exam: CT Abdomen And Pelvis With Contrast Exam date and time: 01/16/2021 9:22 PM Age: 55 years old Clinical indication: Injury or trauma; Blunt; Prior surgery; Surgery type: Spinal stimulator; Patient HX: Approximate 12 foot fall out of tree stand. Patient C/O neck pain, left rib pain, and low back pain. TECHNIQUE: Imaging protocol: Computed tomography of the abdomen and pelvis with contrast. Radiation optimization: All CT scans at this facility use at least one of these dose optimization techniques: automated exposure control; mA and/or kV adjustment per patient size (includes targeted exams where dose is matched to clinical indication); or iterative reconstruction. Contrast material: OMNI 300; Contrast volume: 95 ml; Contrast route: INTRAVENOUS (IV); COMPARISON: CR XR chest 1V portable [id number] 09/27/2019 3:07 AM RADIATION DOSE METRICS: Total DLP (mGy-cm): 2426.24 FINDINGS: Liver: Hepatic steatosis and hepatomegaly are noted. No focal lesions. Gallbladder and bile ducts: Cholecystectomy. Pancreas: Normal. No ductal dilation. Spleen: Spleen shows calcified granulomatous change. Normal size. Adrenal glands: Normal. No mass. Kidneys and ureters: Right renal calculus. Right renal cyst is likely benign. No acute findings. Stomach and bowel: Unremarkable. No obstruction. No mucosal thickening. Appendix: No evidence of appendicitis. Intraperitoneal space: Unremarkable. No free air. No significant fluid collection. Vasculature: Unremarkable. No abdominal aortic aneurysm. Lymph nodes: Unremarkable. No enlarged lymph nodes. Urinary bladder: Unremarkable as visualized. Reproductive: Unremarkable as visualized. Bones/joints: No acute fracture. Soft tissues: Unremarkable. CT/CT chest abd pel w con* IMPRESSION: No acute findings. Fatty liver. Right renal calculus. He he COMMENTS: Consistent with the [employer]'s Incidental Findings Committee white paper (J Am Polly Radiol 2018): Any incidental renal lesion less than 1 cm or classified as too small to characterize, or any incidental cystic renal lesion characterized as simple-appearing, is likely benign. No follow-up imaging is recommended for these lesions per consensus recommendations based on imaging criteria. Radiation Dose CTDIVOL = (mGy): DLP = 2426.24~2426.24 (mGy-cm)
--- NOTE | 2021-01-16 21:22 | XRR_ITS ---
PROCEDURE INFORMATION: Exam: XR Left Femur Exam date and time: 01/16/2021 9:22 PM Age: 55 years old Clinical indication: Injury or trauma; Blunt trauma; Thigh or upper leg; Patient HX: Approximate 12 foot fall out of tree stand. C/O left hip and leg pain. TECHNIQUE: Imaging protocol: XR Left femur. Views: 2 views. COMPARISON: CT abdomen pelvis w con* [id number] 08/03/2016 4:32 PM FINDINGS: Bones/joints: Unremarkable. No acute fracture. Soft tissues: Unremarkable. XR/XR femur LT min 2V* [id number] IMPRESSION: No acute findings. Radiation Dose CTDIVOL = (mGy): DLP = (mGy-cm)
--- NOTE | 2021-01-16 21:22 | CTR_ITS ---
PROCEDURE INFORMATION: Exam: CT Head Without Contrast Exam date and time: 01/16/2021 9:22 PM Age: 55 years old Clinical indication: Injury or trauma; Blunt trauma (contusions or hematomas); Patient HX: Approximate 12 foot fall out of tree stand. Patient C/O neck pain, left rib pain, and low back pain. TECHNIQUE: Imaging protocol: Computed tomography of the head without contrast. Radiation optimization: All CT scans at this facility use at least one of these dose optimization techniques: automated exposure control; mA and/or kV adjustment per patient size (includes targeted exams where dose is matched to clinical indication); or iterative reconstruction. COMPARISON: CT head wo con* [id number] 09/27/2019 3:12 AM RADIATION DOSE METRICS: Total DLP (mGy-cm): 887.36 FINDINGS: Brain: Normal. No hemorrhage. Unremarkable white matter. No mass effect. Cerebral ventricles: No ventriculomegaly. Paranasal sinuses: Visualized sinuses are unremarkable. No fluid levels. Mastoid air cells: Visualized mastoid air cells are well aerated. Bones/joints: No acute findings. Soft tissues: Unremarkable. CT/CT head wo con* [id number] IMPRESSION: No acute intracranial abnormality. Radiation Dose CTDIVOL = (mGy): DLP = 887.36 (mGy-cm)
--- NOTE | 2021-01-16 21:22 | CTR_ITS ---
PROCEDURE INFORMATION: Exam: CT Cervical Spine Without Contrast Exam date and time: 01/16/2021 9:22 PM Age: 55 years old Clinical indication: Injury or trauma; Blunt trauma; Patient HX: Approximate 12 foot fall out of tree stand. Patient C/O neck pain, left rib pain, and low back pain. TECHNIQUE: Imaging protocol: Computed tomography images of the cervical spine without contrast. Radiation optimization: All CT scans at this facility use at least one of these dose optimization techniques: automated exposure control; mA and/or kV adjustment per patient size (includes targeted exams where dose is matched to clinical indication); or iterative reconstruction. COMPARISON: MR cervical spin wo con* [id number] 11/07/2019 2:41 PM RADIATION DOSE METRICS: Total DLP (mGy-cm): 760.25 FINDINGS: Bones/joints: No acute fracture. Normal alignment. Discs/Spinal canal/Neural foramina: Degenerative disc change C5-C6 and C6-C7. Lungs: Lung apices are normal. Soft tissues: Unremarkable. CT/CT cervical spin wo con* [id number] IMPRESSION: No acute findings. Radiation Dose CTDIVOL = (mGy): DLP = 760.25 (mGy-cm)
--- NOTE | 2021-01-16 21:22 | XRR_ITS ---
PROCEDURE INFORMATION: Exam: XR Left Hip Exam date and time: 01/16/2021 9:22 PM Age: 55 years old Clinical indication: Injury or trauma; Blunt trauma (contusions or hematomas); Patient HX: Approximate 12 foot fall out of tree stand. C/O left hip and leg pain. TECHNIQUE: Imaging protocol: XR Left hip. Views: 2 or 3 views hip with pelvis when performed. COMPARISON: CT abdomen pelvis w con* [id number] 08/03/2016 4:32 PM FINDINGS: Bones/joints: Unremarkable. No acute fracture. Soft tissues: Unremarkable. XR/XR hip LT 2-3V wo/w pel* [id number] IMPRESSION: No acute findings. Radiation Dose CTDIVOL = (mGy): DLP = (mGy-cm)
[2021-01-16] MEDS: iohexol 300 mg/mL 100 mL Btl IV (22:03)
[2021-01-16 22:18] VITALS: RESP 24; O2SAT 99
[2021-01-16] MEDS: morphine 4 mg/mL SDV 1 mL IVP ×2 (22:18→23:08)
[2021-01-16] MEDS: acetaminophen 500 mg Tablet 1000 MG PO (22:19)
[2021-01-16] MEDS: ketorolac 30 mg/mL INJ 15 MG IVP (22:20)
[2021-01-16 23:03] VITALS: BP 127/79; PULSE 79; RESP 18; O2SAT 99
[2021-01-16 23:27] VITALS: BP 131/80; PULSE 77; RESP 18; O2SAT 98
== END 2021-01-16 23:25 | disposition home or self-care (01) ==
PROVIDERS: Emergency Provider Emergency Medicine; PCP Family Medicine
DX: M54.9 Dorsalgia, unspecified (principal); W14.XXXA Fall from tree, initial encounter; G20 Parkinson's disease
CPT/HCPCS: 70450; 71260; 72125; 73502; 73552; 74177; 96374; 96375; 96376; 99283; J1885; J2270; Q9967

== ENCOUNTER 2021-01-21 23:10 | Emergency (ER) | payer OTHER, SELFPAY ==
[2021-01-21 23:20] VITALS: BP 138/89; PULSE 97; RESP 22; TEMP 37.2; O2SAT 97; BMI 37.5
--- NOTE | 2021-01-21 23:45 | W.ED.BACK ---
HPI - Back Pain/Injury General: Chief Complaint: Back Pain/Injury Stated Complaint: Injury Sharp pain in Ribs\cant lay down Time Seen by Provider: 01/21/21 23:22 History of Present Illness: HPI Narrative: Patient is a 55-year-old male who comes to the ED with rib pain. Patient was seen here in the ED on January 16 after falling out of a deer stand. All his scans came back negative. He was discharged home with a prescription for hydrocodone. He is also been taking ibuprofen 800 mg as well to help with pain. Patient says he has not been able to control his pain for the past couple days. Denies any reinjury or trauma since his fall on January 16. He reports left rib pain that is a 10 out of 10 and hurts whenever he takes a breath in. Associated symptoms: Deny abdominal pain, chills, dysuria, fatigue, fever(s), hematuria, nausea or vomiting Review of Systems Const: Denies: fever(s), chills or fatigue Eyes: Denies: change in vision or eye discomfort ENMT: Denies: throat pain, odynophagia, nasal discharge or nasal congestion Card: Denies: chest pain, palpitations, edema, swelling of feet/ankles, dyspnea on exertion or orthopnea Resp: Reports: pain on inspiration (Left rib pain); Denies: dyspnea, productive cough or non-productive cough GI: Denies: abdominal pain, nausea, vomiting, diarrhea, constipation or hematochezia : Denies: flank pain, difficulty urinating, dysuria or hematuria Musc: Denies: neck pain, back pain or extremity swelling Skin/Breast: Denies: rash or new lesions Neuro: Denies: headache(s), numbness in extremities or weakness in extremities [facility] ED PFSH: Medical History Bradycardia Ch mgr wo marilyn w ntr w st Chronic migraine without aura, intractable, with status migrainosus -Follows up with Dr. Fish for Botox injections, last given on 09/19 Essential tremor Essential tremor -On primidone Parkinson disease Syncope Surgical History History of carpal tunnel release History of cholecystectomy Family History Mother Cancer Grandmother Cancer Other Cerebral palsy Tremor Social History Smoking and tobacco status: never smoked History of recent travel: No Physical Exam Const: COMMON NORMALS: patient oriented x3 and alert GENERAL APPEARANCE: cooperative; not comfortable (Patient appears uncomfortable and in some pain.) HENMT: COMMON NORMALS: normocephalic HEAD & SCALP: normocephalic MOUTH: Normal oral and palatal mucosa present THROAT: posterior oropharynx normal and uvula midline Neck/C-Spine: COMMON NORMALS: supple GENERAL: Yes normal visual inspection Chest: CHEST: Yes tenderness rib left mid-axillary line involving the 7th rib and involving the 8th rib Resp: COMMON NORMALS: normal respiratory effort, No retractions, No use of accessory muscles and clear to auscultation bilaterally AUSCULTATION: clear to auscultation bilaterally Cardio: COMMON NORMALS: regular rate, regular rhythm, S1 normal heart sound present, S2 normal heart sound present, No gallops present (Cardio), No clicks present (Cardio), No murmurs present (Cardio) and Peripheral pulses 2+ throughout RATE: regular rate RHYTHM: regular rhythm HEART SOUNDS: S1 normal heart sound present and S2 normal heart sound present PERIPHERAL PULSES: Peripheral pulses 2+ throughout GI: COMMON NORMALS: Normal to inspection, nondistended, normoactive bowel sounds present, Soft to palpation, non-tender and no masses PALPATION: Yes Soft to palpation : COMMON NORMALS: Yes no CVA tenderness BLADDER/KIDNEY EXAM: Yes no CVA tenderness Back/Pelvis: COMMON NORMALS: no CVA tenderness Extremity: COMMON NORMALS: normal to inspection Neuro: COMMON NORMALS: patient oriented x3 SENSORIUM/ORIENTATION: Yes alert Skin: GENERAL SKIN EXAM: dry skin Course Reevaluation(s): Reevaluation #1: Patient was given a hydrocodone 10 mg / 325 mg tablet here in the ED and his pain improved. He says he is finally able to take normal breaths and sit comfortably. Time: 00:43 Vital Signs: Vital signs: Vital Signs Temperature 99.0 F 01/21/21 23:20 Pulse Rate 97 01/21/21 23:20 Respiratory Rate 22 H 01/21/21 23:20 Blood Pressure 138/89 01/21/21 23:20 Pulse Oximetry 97 01/21/21 23:20 MDM - Back Pain/Injury MDM Narrative: Medical decision making narrative: Patient is a 55-year-old male comes to the ED with left rib pain. He was seen here in the ED on January 16 after falling out of deer stand. All his scans were negative. He was discharged home with a prescription for hydrocodone. He has been taking hydrocodone and ibuprofen and has not been able to control his left rib pain. He says that sharp hurts to take a deep breath. Denies any reinjury or trauma since fall on January 16. Vitals stable. Exam showed some left rib #7 #8 tenderness to palpation. Left rib x-ray showed no acute rib fractures. Patient was given [place] 10mg while here in the ED and his pain improved and he was more comfortable. Patient was diagnosed with left rib pain discharged home with a prescription for muscle relaxer and Percocet 5/325 mg #12 tabs approved and signed by Dr. Gutierrez. He was also sent home with an incentive spirometer. He was told to rest and limit activity for the next several days. Follow-up with his PCP in 5 to 7 days reevaluation. I instructed him to take the Percocets first for pain for the next 3 days and then he can go back to using his previously prescribed hydrocodone as needed for pain. Patient understood and agreed with plan. Imaging Data^: CXR: Attestation: I personally reviewed and interpreted this imaging study as follows: Radiologist's impression: [address] [address] XRay Report Signed Patient: Sae Zavala Unit #: [id number] : 1965 Age/Sex: 55 / M ADM Date: 01/21/21 Loc: ER Room/Bed: Attending Dr: Ordering Provider/Ordering MD: Otis Torres Date of Service: 01/21/21 Procedure(s): XR ribs LT mn 3V w CXR1V [id number] Accession Number(s): [id number] Report Number: [id number] PROCEDURE INFORMATION: Exam: XR Left Ribs with PA Chest Exam date and time: 01/21/2021 11:56 PM Age: 55 years old Clinical indication: Chest wall pain; Prior surgery; Surgery type: Stimulator; Patient HX: Persistent left chest wall/rib pain with painful inspiration from tree stand fall five days ago. ; Additional info: Fall injury 5 days ago-left rib pain TECHNIQUE: Imaging protocol: XR Left ribs with PA chest. Views: 3 views COMPARISON: CT chest abd pel w con* 01/16/2021 9:58 PM FINDINGS: Tubes, catheters and devices: Thoracic epidural stimulator device present. Lungs: Calcified granuloma in the right lower lobe. No focal acute airspace consolidation. No visible pulmonary hemorrhage. Pleural spaces: Unremarkable. No pleural effusion. No pneumothorax. Heart/Mediastinum: Unremarkable. No cardiomegaly. Bones/joints: Unremarkable. XR/XR ribs LT mn 3V w CXR1V [id number] IMPRESSION: Negative for acute rib fracture. Radiation Dose CTDIVOL = (mGy): DLP = (mGy-cm) Dictated By: Quincy Roberson Signed By: Quincy Roberson Signed Date/Time: 01/22/215 DD/ 717 Discharge Plan Discharge Patient Disposition: Home Clinical Impression: Rib pain on left side Condition: Stable Prescriptions: New cyclobenzaprine 10 mg tablet 10 mg PO BID PRN (Reason: muscle spasm) Qty: 20 RF: 0 No Action primidone 50 mg tablet 50 mg PO BID RF: 0 gemfibrozil 600 mg tablet 600 mg PO BID RF: 0 prazosin 2 mg capsule 2 mg PO .HS RF: 0 hydroxyzine HCl 25 mg tablet 25 mg PO .HS RF: 0 mirtazapine 30 mg tablet 60 mg PO .HS RF: 0 cholecalciferol (vitamin D3) 50 mcg (2,000 unit) capsule 50 mcg PO BID RF: 0 turmeric root extract 500 mg capsule 1,000 mg PO DAILY RF: 0 amlodipine 5 mg tablet 5 mg PO DAILY Qty: 90 RF: 3 venlafaxine 75 mg capsule,extended release 24hr 75 mg PO TID 14 Days Qty: 42 RF: 0 oxycodone 5 mg tablet 5 mg PO Q4H PRN (Reason: pain) Qty: 14 RF: 0 Discharge Orders: Discharge ED (Routine); Ordered 01/22/21 Ordered By: Otis Torres Referrals: Dora Perez MD [Primary Care Provider] - Discharge Diet: Regular Discharge Activity: Increase activity as tolerated Patient Instructions: Rib Contusion (ED), Opioid Safety Activity Restrictions/Additional Instructions: Follow-up with medical provider as directed 7 to 10 days reevaluation. Take medications as prescribed. Apply cold pack on sore ribs to help with symptoms as well. Use incentive spirometer multiple times throughout the day to help build up lungs. return to the ER or your medical provider if condition worsens. Please read and understand discharge instructions. Thank you for choosing [facility] for your healthcare needs today. Please realize this is an emergency room and that we are providing you with a medical screening exam and this may not be complete and all inclusive of all the testing and or work up that you may need to determine your ailment or severity of your illness. It is very important that you follow up as instructed or that you return to the Emergency Department should you have concerns or if your condition changes or worsens in any way. Coding Level of Care Code ED Staff Pharmacist [facility] Exam Comprehensive
--- NOTE | 2021-01-21 23:56 | XRR_ITS ---
PROCEDURE INFORMATION: Exam: XR Left Ribs with PA Chest Exam date and time: 01/21/2021 11:56 PM Age: 55 years old Clinical indication: Chest wall pain; Prior surgery; Surgery type: Stimulator; Patient HX: Persistent left chest wall/rib pain with painful inspiration from tree stand fall five days ago. ; Additional info: Fall injury 5 days ago-left rib pain TECHNIQUE: Imaging protocol: XR Left ribs with PA chest. Views: 3 views COMPARISON: CT chest abd pel w con* 01/16/2021 9:58 PM FINDINGS: Tubes, catheters and devices: Thoracic epidural stimulator device present. Lungs: Calcified granuloma in the right lower lobe. No focal acute airspace consolidation. No visible pulmonary hemorrhage. Pleural spaces: Unremarkable. No pleural effusion. No pneumothorax. Heart/Mediastinum: Unremarkable. No cardiomegaly. Bones/joints: Unremarkable. XR/XR ribs LT mn 3V w CXR1V [id number] IMPRESSION: Negative for acute rib fracture. Radiation Dose CTDIVOL = (mGy): DLP = (mGy-cm)
[2021-01-22] MEDS: HYDROcodone-acetaminophen 10-325 mg Tablet 1 TAB PO (00:11)
[2021-01-22 00:56] VITALS: BP 156/88; PULSE 68; RESP 18; O2SAT 96
== END 2021-01-22 00:58 | disposition home or self-care (01) ==
PROVIDERS: Emergency Provider Physician Assistant; PCP Family Medicine
DX: R07.81 Pleurodynia (principal); G20 Parkinson's disease
CPT/HCPCS: 71101; 99283

== ENCOUNTER → 2021-02-12 10:30 | Outpatient (BNVA) | payer OTHER, SELFPAY | PROVIDERS: PCP Family Medicine; Visit Provider Specialist | DX: G43.709 Chronic migraine without aura, not intractable, without status migrainosus (principal); G25.0 Essential tremor | CPT/HCPCS: 64615; J0585 ==

== ENCOUNTER → 2021-09-28 15:41 | Outpatient (BNVA) | payer OTHER, SELFPAY | PROVIDERS: PCP Family Medicine; Visit Provider Specialist | DX: G43.711 Chronic migraine without aura, intractable, with status migrainosus (principal); G25.0 Essential tremor | CPT/HCPCS: 64615; 99212; 99213; J0585 ==

== ENCOUNTER → 2021-12-24 14:56 | Outpatient (BNVA) | payer OTHER, SELFPAY | PROVIDERS: PCP Family Medicine; Visit Provider Specialist | DX: G43.711 Chronic migraine without aura, intractable, with status migrainosus (principal) | CPT/HCPCS: 64615; J0585 ==

== ENCOUNTER 2022-02-07 14:33 | Emergency (ER) | payer OTHER, SELFPAY ==
[2022-02-07 14:41] VITALS: BP 161/91; PULSE 81; RESP 16; TEMP 36.8; O2SAT 98
--- NOTE | 2022-02-07 14:45 | XRR_ITS ---
PROCEDURE INFORMATION: Exam: XR Left Hand Exam date and time: 02/07/2022 3:06 PM Age: 56 years old Clinical indication: Injury or trauma; Other: Cut finger; Laceration; Hand; Left; Additional info: Cut fingers with knife TECHNIQUE: Imaging protocol: Radiologic exam of the Left hand. Views: 3 or more views. COMPARISON: No relevant prior studies available. FINDINGS: Bones/joints: Negative for acute bony abnormality. Soft tissues: Negative for soft tissue foreign body. Soft tissue edema is seen in the ventral aspect of the 3rd digit. XR/XR hand LT min 3V* [id number] IMPRESSION: 1. No acute findings. 2. Soft tissue edema 3rd digit. 3. Negative for radiodense foreign body
--- NOTE | 2022-02-07 14:59 | W.ED.WOUNDLC ---
HPI - Wound/Laceration General: Chief Complaint: Wound/Laceration Stated Complaint: left hand lac Time Seen by Provider: 02/07/22 14:46 History of Present Illness: Patient is a 56-year-old male who comes to the ED with left hand laceration. Patient says he was trying to close his knife and he excellently cut his first second and third fingers on left hand. He was able to control bleeding at home with a bandage. He endorses having minimal pain. He has full range of motion fingers. He is up-to-date on his tetanus. Associated symptoms: Denies chills, fever(s), nausea or vomiting Review of Systems Const: Denies: fever(s), chills or fatigue Eyes: Denies: change in vision or eye discomfort ENMT: Denies: throat pain, odynophagia, nasal discharge or nasal congestion Card: Denies: chest pain, palpitations, edema, swelling of feet/ankles, dyspnea on exertion or orthopnea Resp: Denies: dyspnea, productive cough or non-productive cough GI: Denies: abdominal pain, nausea, vomiting, diarrhea, constipation or hematochezia : Denies: flank pain, difficulty urinating, dysuria or hematuria Musc: Denies: neck pain, back pain or extremity swelling Skin/Breast: Reports: new lesions (laceration to first second and third digits on left hand); Denies: rash Neuro: Denies: headache(s), numbness in extremities or weakness in extremities PFS ED PFSH: Medical History Bradycardia Ch mgr wo marilyn w ntr w st Chronic migraine without aura, intractable, with status migrainosus -Follows up with Dr. Fish for Botox injections, last given on 09/19 Essential tremor Essential tremor -On primidone Parkinson disease Syncope Surgical History History of carpal tunnel release History of cholecystectomy Family History Mother Cancer Grandmother Cancer Other Cerebral palsy Tremor Social History Smoking and tobacco status: never smoked Alcohol intake: never History of recent travel: No Physical Exam Const: COMMON NORMALS: no acute distress, patient oriented x3 and alert GENERAL APPEARANCE: cooperative and comfortable HENMT: COMMON NORMALS: normocephalic HEAD & SCALP: normocephalic MOUTH: Normal oral and palatal mucosa present THROAT: posterior oropharynx normal and uvula midline Neck/C-Spine: COMMON NORMALS: supple GENERAL: Yes normal visual inspection Resp: COMMON NORMALS: normal respiratory effort, No retractions, No use of accessory muscles and clear to auscultation bilaterally AUSCULTATION: clear to auscultation bilaterally Cardio: COMMON NORMALS: regular rate, regular rhythm, S1 normal heart sound present, S2 normal heart sound present, No gallops present (Cardio), No clicks present (Cardio), No murmurs present (Cardio) and Peripheral pulses 2+ throughout RATE: regular rate RHYTHM: regular rhythm HEART SOUNDS: S1 normal heart sound present and S2 normal heart sound present PERIPHERAL PULSES: Peripheral pulses 2+ throughout GI: COMMON NORMALS: Normal to inspection, nondistended, normoactive bowel sounds present, Soft to palpation, non-tender and no masses PALPATION: Yes Soft to palpation : COMMON NORMALS: Yes no CVA tenderness BLADDER/KIDNEY EXAM: Yes no CVA tenderness Back/Pelvis: COMMON NORMALS: no CVA tenderness Extremity: COMMON NORMALS: full ROM and capillary refill normal NARRATIVE EXTREMITY EXAM: Left hand?superficial 1 cm linear laceration to distal pad of second digit. Third digit with 2 cm linear laceration that is superficial and is located over the middle phalanx. Patient also has a skin avulsion around distal pad of thumb. No active bleeding or foreign body seen. He has full range of motion and strength in fingers of left hand and no concern for any tendon laceration. Neuro: COMMON NORMALS: patient oriented x3 SENSORIUM/ORIENTATION: Yes alert GAIT: Yes Normal gait present Skin: GENERAL SKIN EXAM: dry skin Procedures Laceration Laceration 1: Site: hand (Left hand-second digit 1 cm lac and third digit 2 cm lac) Size (cm): 3 Description: linear Depth: simple, single layer Local Anesthetic: lidocaine 1% Amount of anesthesia used (mL): 5 Pre-repair: irrigated extensively (Normal saline) Skin layer closed with: nylon Size (cm): 4-0 Number of sutures: 4 Technique: simple, interrupted Course Vital Signs: Vital signs: Vital Signs Temperature 98.2 F 02/07/22 14:41 Pulse Rate 75 02/07/22 16:49 Respiratory Rate 16 02/07/22 16:49 Blood Pressure 161/91 02/07/22 14:41 Pulse Oximetry 99 02/07/22 16:49 MDM - Wound/Laceration Medical Decision Making Patient is a 56-year-old male who comes to the ED with left hand laceration. Patient says he was trying to close his knife and he excellently cut his first second and third fingers on left hand. Left hand?superficial 1 cm linear laceration to distal pad of second digit. Third digit with 2 cm linear laceration that is superficial and is located over the middle phalanx. Patient also has a skin avulsion around distal pad of thumb. No active bleeding or foreign body seen.He has full range of motion and strength in fingers of left hand and no concern for any tendon laceration. X-ray of left hand showed no acute findings. Lacerations were irrigated extensively with normal saline. Lacerations and lidocaine 1% was used as local and 4 sutures were placed to close lacerations. Nurse applied triple antibiotic ointment and bandaged up laceration sites. Patient told to follow-up with provider in the next 7 to 10 days to get sutures removed. Patient was instructed on how to care for lacerations. He was sent home with a prophylactic prescription for Keflex. Patient understood and agreed with plan. Lab Data Radiology Impressions Hand X-Ray 02/07/22 14:45 IMPRESSION: 1. No acute findings. 2. Soft tissue edema 3rd digit. 3. Negative for radiodense foreign body Discharge Plan Discharge Patient Disposition: Home Clinical Impression: Laceration of finger of left hand Qualifiers: Encounter type: initial encounter Finger: unspecified finger Damage to nail status: without damage Foreign body presence: without foreign body Qualified Code(s): S61.219A - Laceration without foreign body of unspecified finger without damage to nail, initial encounter Condition: Stable Prescriptions: New cephalexin 500 mg capsule 500 mg PO Q6H 4 Days Qty: 16 0RF No Action primidone 50 mg tablet 50 mg PO BID gemfibrozil 600 mg tablet 600 mg PO BID prazosin 2 mg capsule 2 mg PO .HS hydroxyzine HCl 25 mg tablet 25 mg PO .HS mirtazapine 30 mg tablet 60 mg PO .HS cholecalciferol (vitamin D3) 50 mcg (2,000 unit) capsule 50 mcg PO BID turmeric root extract 500 mg capsule 1,000 mg PO DAILY venlafaxine 75 mg capsule,extended release 24hr 75 mg PO TID 14 Days Qty: 42 0RF amlodipine 5 mg tablet 5 mg PO DAILY Qty: 90 3RF cyclobenzaprine 10 mg tablet 10 mg PO BID PRN (Reason: muscle spasm) Qty: 20 0RF Discharge Orders: Discharge ED (Routine); Ordered 02/07/22 Ordered By: Otis Torres Referrals: Dora Perez MD [Primary Care Provider] - Discharge Diet: Regular Discharge Activity: Limit activity as instructed Patient Instructions: Finger Laceration (ED) Activity Restrictions/Additional Instructions: Take full course of antibiotics as prescribed. Keep laceration site clean and dry.. Clean daily with soap and water and then apply thin layer of triple antibiotic ointment on it and cover with bandage. Watch for signs of infection such as redness, warmth, increased tenderness and puslike drainage. If you see the signs of infection return to the ED, urgent care or PCP for reevaluation. call your PCP to schedule a follow-up appointment for reevaluation and suture removal in about 7-10 days. Continue taking all home meds. Follow discharge plans as discussed. You can return to the ED if symptoms worsen. Coding Level of Care Code ED [employer] [facility] Exam Comprehensive
--- NOTE | 2022-02-07 16:45 | PC.NURSE ---
PT THREE FINGERS COVERED WITH TELFA AND WRAPPED WITH BETHANY.
[2022-02-07 16:49] VITALS: PULSE 75; RESP 16; O2SAT 99
[2022-02-07] MEDS: lidocaine 1% INJ 20 mL MDV (mL) INJECTION (16:49)
[2022-02-07] MEDS: neomycin-poly-bacitracin oint 28 gm 1 APPLIC TOPICAL (16:49)
== END 2022-02-07 16:51 | disposition home or self-care (01) ==
PROVIDERS: Emergency Provider Physician Assistant; PCP Family Medicine
DX: S61.211A Laceration without foreign body of left index finger without damage to nail, initial encounter (principal); S61.213A Laceration without foreign body of left middle finger without damage to nail, initial encounter; W26.0XXA Contact with knife, initial encounter
CPT/HCPCS: 12002; 73130; 99283; A6446

== ENCOUNTER → 2022-03-11 15:44 | Outpatient (BNVA) | payer OTHER, SELFPAY | PROVIDERS: PCP Family Medicine; Visit Provider Internal Medicine | DX: I10 Essential (primary) hypertension (principal); R55 Syncope and collapse | CPT/HCPCS: 99213 ==

== ENCOUNTER → 2022-03-18 14:14 | Outpatient (BNVA) | payer OTHER, SELFPAY | PROVIDERS: PCP Family Medicine; Visit Provider Specialist | DX: G31.84 Mild cognitive impairment of uncertain or unknown etiology (principal); G25.0 Essential tremor; G43.711 Chronic migraine without aura, intractable, with status migrainosus | CPT/HCPCS: 99214 ==

== ENCOUNTER 2022-08-04 11:30 | Emergency (ER) | payer OTHER, SELFPAY ==
[2022-08-04 11:38] VITALS: BP 140/94; PULSE 75; RESP 14; TEMP 36.7; O2SAT 97; BMI 37.1
--- NOTE | 2022-08-04 14:15 | ED_ITS ---
HPI - General Adult General: Chief complaint: General Medical Stated complaint: post surgery, bleeding from throat Time Seen by Provider: 08/04/22 13:49 History of Present Illness: Patient presents to the ER with complaints of his neck surgery incision bleeding. Patient had an ACDF surgery done approximately 1 week ago. Everything was going good patient was sent home he noticed his his incision starting to ooze and bleed today. There is no erythema foul odor or purulence. Review of Systems General: Reports: 10 or more systems reviewed and unremarkable except in HPI and below PFSH ED PFSH: Medical History (Updated 08/04/22 @ 14:19 by Massiom Friedman DO) Bradycardia Ch mgr wo marilyn w ntr w st Chronic migraine without aura, intractable, with status migrainosus -Follows up with Dr. Fish for Botox injections, last given on 09/19 Essential tremor Essential tremor -On primidone Parkinson disease Syncope Surgical History History of carpal tunnel release History of cholecystectomy Family History Mother Cancer Grandmother Cancer Other Cerebral palsy Tremor Social History Smoking and tobacco status: never smoked Alcohol intake: never Substance/Drug Use: never Physical Exam Const: COMMON NORMALS: no acute distress, average body habitus, patient oriented x3, no limitations, healthy appearing, alert and well nourished HENMT: COMMON NORMALS: normocephalic, atraumatic, hearing grossly normal bilaterally, external ears normal, Normal external nose present and moist oral mucous membranes HEAD & SCALP: normocephalic and atraumatic NOSE: Normal external nose present EXTERNAL EAR: Yes external ears normal Eye: COMMON NORMALS: Equal, round and reactive pupils present, EOMs intact bilaterally, conjunctivae normal and no scleral icterus CONJUNCTIVA: Yes conjunctivae normal PUPIL: Yes Equal, round and reactive pupils present Neck/C-Spine: COMMON NORMALS: no JVD OTHER: Patient is in a c-collar and has a anterior incision that is oozing from the right margin of the incision. It is oozing a serosanguineous fluid. When this area was palpated it appeared to be a seroma. This this area was massaged and drained. There was no erythema no odor or no gross purulence. This area was mu ch softer when drained. Lymph: LYMPHATIC: no lymphadenopathy noted Chest: COMMONS NORMALS: normal inspection of the chest and normal palpation of entire chest wall Resp: COMMON NORMALS: normal respiratory effort, No retractions, No use of accessory muscles and clear to auscultation bilaterally AUSCULTATION: clear to auscultation bilaterally Cardio: COMMON NORMALS: no JVD, regular rate, regular rhythm, S1 normal heart sound present and S2 normal heart sound present RATE: regular rate RHYTHM: regular rhythm HEART SOUNDS: S1 normal heart sound present and S2 normal heart sound present GI: COMMON NORMALS: Normal to inspection, nondistended, normoactive bowel sounds present, Soft to palpation, non-tender, No hepatosplenomegaly present and no masses PALPATION: Yes Soft to palpation and Yes No hepatosplenomegaly present Neuro: COMMON NORMALS: patient oriented x3 SENSORIUM/ORIENTATION: Yes alert Course Vital Signs: Vital signs: Vital Signs Temperature 98.1 F 08/04/22 11:38 Pulse Rate 75 08/04/22 11:38 Respiratory Rate 14 08/04/22 11:38 Blood Pressure 140/94 08/04/22 11:38 Pulse Oximetry 97 08/04/22 11:38 Oxygen Delivery Me thod Room Air 08/04/22 11:38 MDM - General Adult Medical Decision Making Patient presented to the ER with complaints of bleeding from his incision from his neck surgery. Patient appeared to be what have a postop seroma that was easily massaged and drained. 4 x 4's were placed on it as a dressing was instructed how to massage it and drain it. Patient was instructed to follow back up with his surgeon if this did not resolve. And/or to come to the ER as needed. Differential Diagnosis Bleeding, seroma, abscess, Medical Records I reviewed the patient's medical records. Lab Data I reviewed the patient's lab results. Discharge Plan Discharge Patient Disposition: Home Clinical Impression: Seroma after procedure Condition: Stable Prescriptions: No Action primidone 50 mg tablet 50 mg PO BID gemfibrozil 600 mg tablet 600 mg PO BID prazosin 2 mg capsule 2 mg PO .HS hydroxyzine HCl 25 mg tablet 25 mg PO .HS mirtazapine 30 mg tablet 60 mg PO .HS cholecalciferol (vitamin D3) 50 mcg (2,000 unit) capsule 50 mcg PO BID turmeric root extract 500 mg capsule 1,000 mg PO DAILY galantamine 4 mg tablet 4 mg PO BID Qty: 60 2RF Rx Instructions: administer with AM and PM meals venlafaxine 75 mg capsule,extended release 24hr 75 mg PO TID 14 Days Qty: 42 0RF amlodipine 5 mg tablet 5 mg PO DAILY Qty: 90 3RF Discharge Orders: Discharge ED (Routine); Ordered 08/04/22 Ordered By: Massimo Friedman Referrals: Dora Perez MD [Primary Care Provider] - 1 week Patient Instructions: Seroma (DC) Activity Restrictions/Additional Instructions: It appears your neck drainage was from his postsurgical seroma. Please keep this area massaged and drained if possible. Please keep this area clean and dry and change dressings as needed. If you develop a fever pain or odor from this area please follow-up with your surgeon or come back back to the ER for further evaluation. Coding Level of Care Code ED Kraft Digester Operator for Elio Pendleton
== END 2022-08-04 15:19 | disposition home or self-care (01) ==
PROVIDERS: Emergency Provider Emergency Medicine; PCP Family Medicine
DX: L76.34 Postprocedural seroma of skin and subcutaneous tissue following other procedure (principal); Y83.8 Other surgical procedures as the cause of abnormal reaction of the patient, or of later complication, without mention of misadventure at the time of the procedure; G20 Parkinson's disease
CPT/HCPCS: 99282

== ENCOUNTER 2023-01-18 09:19 | Outpatient (RCR) | payer OTHER, SELFPAY | END 2023-02-03 23:59 | disposition home or self-care (01) | LOC: SOT 09:19 | PROVIDERS: PCP Family Medicine; Visit Provider Family Medicine | DX: M19.049 Primary osteoarthritis, unspecified hand (principal) | CPT/HCPCS: 97022; 97110; 97166; 97530 ==

== ENCOUNTER 2023-01-25 11:35 | Emergency (ER) | payer OTHER, SELFPAY ==
[2023-01-25] VITALS (14 sets, daily range): BP systolic 123–168; BP diastolic 74–112; PULSE 41–62; RESP 15–26; TEMP 37.1; O2SAT 94–100; BMI 37.1
[2023-01-25 13:20] LABS: Basophils % 0.3 %; Eosinophils # 0.1 10^3/uL (0.0-0.8); Eosinophils % 1.2 %; Hematocrit 44.3 % (37-53); Lymphocytes # 1.5 10^3/uL (0.8-4.8); Lymphocytes % 14.9 %; Mean Corpuscular HGB Conc 33.6 g/dL (30-55); Mean Corpuscular Hemoglobin 29.5 pg (27-33); Mean Corpuscular Volume 87.7 fl (82-101); Mean Platelet Volume 9.7 fL (7.4-10.4); Monocytes # 0.5 10^3/uL (0.2-0.9); Monocytes % 4.7 %; Neutrophils # 7.95 10^3/uL (1.8-7.7); Neutrophils % 78.6 %; Nucleated Red Blood Cells % 0 %; Platelet Count 251 10^3/cmm (157-399); Red Blood Count 5.05 10^6/uL (3.85-5.65); Red Cell Distribution Width 12.3 % (12.1-15.1)
[2023-01-25 13:42] LABS: Alanine Aminotransferase 33 U/L (0-41); Albumin Level 5.2 g/dL (3.5-5.2); Alkaline Phosphatase 74 U/L (40-130); Anion Gap 18.1 (5-19); Aspartate Amino Transferase 21 U/L (0-40); Blood Urea Nitrogen 16 mg/dL (6-20); Calcium 9.9 mg/dL (8.5-10.5); Carbon Dioxide 23 mmol/L (22-29); Chloride 108 mmol/L (98-107); Globulin 2.6 g/dL (1.3-4.6); Glomerular Filtration Rate 77.6 mL/min (90-130); Glucose 140 mg/dL (65-115); Osmolality Calculated 303 mOsm/kg (285-295); Potassium 4.1 mmol/L (3.5-5.1); Sodium 145 mmol/L (136-145); Total Bilirubin 0.3 mg/dL (0.15-1.2); Total Protein 7.8 g/dL (6.6-8.7)
--- NOTE | 2023-01-25 14:09 | ED_ITS ---
HPI - Abdominal Pain General: Chief Complaint: Abdominal Pain Stated Complaint: ride side abd pain Time Seen by Provider: 01/25/23 12:20 History of Present Illness: 57-year-old male presents emergency department with complaints of right flank pain radiating around to his right lower abdomen. He states he does have associated nausea. He states the pain comes and goes in waves. And when it is at its worst it is a 10 out of 10 with associated nausea. He states he feels like the pain is so bad that he is unable to sit still. He states that he cannot think of anything that makes it better nothing makes it worse. He started having this pain at approximately 630 this morning. He denies shortness of breath or chest pain. He denies syncope or near syncope. Associated Symptoms: Reports nausea and vomiting Review of Systems General: Reports: 10 or more systems reviewed and unremarkable except in HPI and below GI: Reports: abdominal pain, nausea and vomiting Musc: Reports: back pain PFSH ED PFSH: Medical History (Updated 01/25/23 @ 17:48 by Baron Suero MD) Bradycardia Ch mgr wo marilyn w ntr w st Chronic migraine without aura, intractable, with status migrainosus -Follows up with Dr. Fish for Botox injections, last given on 09/19 Essential tremor Essential tremor -On primidone Parkinson disease Syncope Surgical History History of carpal tunnel release History of cholecystectomy Family History Mother Cancer Grandmother Cancer Other Cerebral palsy Tremor Social History Smoking and tobacco/nicotine status: never used tobacco/nicotine Alcohol intake: never Substance/Drug Use: never Physical Exam Narrative: EXAM NARRATIVE: Constitutional: the patient appears well nourished and with normal development. Vital signs reviewed as documented. Obvious acute pain noted, acute distress. HENMT: Normocephalic, atraumatic. Extermal ears with normal appearance without drainage. Nose without drainage, normal appearance. Mucus membranes moist. Neck is supple, No jugular venous distension, trachea is midline, no appreciable carotid bruits. No lymphadenopathy. No meningeal signs. Flexion, extension and lateral rotation is without pain. Eyes: Pupils are equal, round, reactive to light and accommodation. No scleral icterus. Extra-ocular movement are intact. Thorax is symmetrical and with equal rise and fall with respirations. Resp: Lungs are clear to auscultation. No wheezes, rales, crackles or ronchi at present. Cardio: Regular rate and rhythm. Positive S1, S2. No appreciable murmurs, rubs or gallops. GI: Abdominal exam reveals normal bowel sounds to all quadrants. No organomegaly. No obvious palpable masses noted. No hepatomegally appreciated. Soft, nontender to palpation. Extremity: Extremities are non-edematous and both femoral and pedal pulses are 2+ and equal bilaterally. Moves all extremities well, sensation in all extremities. Neuro: Alert and oriented x4, person, place, time and situation. Cranial nerves II through XII are grossly intact, there is no focal neurological deficits that I can appreciate at present. Motor strength in the upper and lower extremities are equal and bilateral 5/5. Psych: Cooperative, calm, normal thought process, appropriate judgment. Skin: No lesions, rashes. No gross abnormalities noted. Back: Symmetrical, no obvious deformity, right CVA tenderness to percussion. Course Vital Signs: Vital signs: Vital Signs Temperature 98.8 F 01/25/23 12:13 Pulse Rate 51 L 01/25/23 18:00 Respiratory Rate 18 01/25/23 18:00 Blood Pressure 168/86 01/25/23 18:00 Pulse Oximetry 100 01/25/23 18:00 Oxygen Delivery Me thod Room Air 01/25/23 18:00 MDM - Abdominal Pain Medical Decision Making Physical exam completed and documented, I will obtain laboratory evaluation to include a CBC, CMP, lipase, urinalysis, and a CT scan of the patient's abdomen pelvis to evaluate for possible differential diagnosis of bowel obstruction, incarcerated hernia, abdominal wall strain, abdominal wall hematoma, constipation. I will provide the patient IV access and IV fluid as well as a CT scan abdomen pelvis with contrast for evaluation for possible colitis, acute appendicitis, diverticulitis and renal calculi. I will provide IV pain medication and antiemetic Differential Diagnosis Likely abdominal pain Lab Data I reviewed the patient's lab results. 01/25/23 13:13 01/25/23 13:13 Labs/Radiology: Radiology Impressions Abdomen/Pelvis CT 01/25/23 16:45 IMPRESSION: 1. Mild right hydronephrosis. There is a 3 mm proximal obstructing right ureteral calculus. Findings are consistent with right obstructive uropathy. 2. The appendix is normal in appearance. No evidence of appendicitis. 3. Decreased hepatic density is noted, consistent with hepatic steatosis. Laboratory Results WBC 10.10 10^3/uL (3.29-11.43) 01/25/23 13:13 RBC 5.05 10^6/uL (3.85-5.65) 01/25/23 13:13 Hgb 14.90 g/dL (11.27-16.99) 01/25/23 13:13 Hct 44.3 % (37-53) 01/25/23 13:13 MCV 87.7 fl (82-101) 01/25/23 13:13 MCH 29.5 pg (27-33) 01/25/23 13:13 MCHC 33.6 g/dL (30-55) 01/25/23 13:13 RDW 12.3 % (12.1-15.1) 01/25/23 13:13 Plt Count 251 10^3/cmm (157-399) 01/25/23 13:13 MPV 9.7 fL (7.4-10.4) 01/25/23 13:13 Neut % (Auto) 78.6 % 01/25/23 13:13 Lymph % (Auto) 14.9 % 01/25/23 13:13 Miller % (Auto) 4.7 % 01/25/23 13:13 Eos % (Auto) 1.2 % 01/25/23 13:13 Baso % (Auto) 0.3 % 01/25/23 13:13 Neut # (Auto) 7.95 10^3/uL (1.8-7.7) H 01/25/23 13:13 Lymph # (Auto) 1.5 10^3/uL (0.8-4.8) 01/25/23 13:13 Miller # (Auto) 0.5 10^3/uL (0.2-0.9) 01/25/23 13:13 Eos # (Auto) 0.1 10^3/uL (0.0-0.8) 01/25/23 13:13 Baso # (Auto) 0.0 10^3/uL (0.0-0.1) 01/25/23 13:13 Nucleated RBC % (auto) 0 % 01/25/23 13:13 Nucleated RBCs # 0.0 /100WBC 01/25/23 13:13 Sodium 145 mmol/L (136-145) 01/25/23 13:13 Potassium 4.1 mmol/L (3.5-5.1) 01/25/23 13:13 Chloride 108 mmol/L (98-107) H 01/25/23 13:13 Carbon Dioxide 23 mmol/L (22-29) 01/25/23 13:13 Anion Gap 18.1 (5-19) 01/25/23 13:13 BUN 16 mg/dL (6-20) 01/25/23 13:13 Creatinine 1.0 mg/dL (0.7-1.2) 01/25/23 13:13 GFR Calculation 77.6 mL/min (90-130) L 01/25/23 13:13 Glucose 140 mg/dL (65-115) H 01/25/23 13:13 Calculated Osmolality 303 mOsm/kg (285-295) H 01/25/23 13:13 Calcium 9.9 mg/dL (8.5-10.5) 01/25/23 13:13 Total Bilirubin 0.3 mg/dL (0.15-1.2) 01/25/23 13:13 AST 21 U/L (0-40) 01/25/23 13:13 ALT 33 U/L (0-41) 01/25/23 13:13 Alkaline Phosphatase 74 U/L (40-130) 01/25/23 13:13 Total Protein 7.8 g/dL (6.6-8.7) 01/25/23 13:13 Albumin 5.2 g/dL (3.5-5.2) 01/25/23 13:13 Globulin 2.6 g/dL (1.3-4.6) 01/25/23 13:13 Urine Color Yellow (Yellow) 01/25/23 15:14 Urine Appearance Clear (CLEAR) 01/25/23 15:14 Urine pH 6 (5-7) 01/25/23 15:14 Ur Specific Brewster 1.020 (1.005-1.030) 01/25/23 15:14 Urine Protein Neg (Negative) 01/25/23 15:14 Urine Glucose (UA) Norm (Normal) 01/25/23 15:14 Urine Ketones Negative (Negative) 01/25/23 15:14 Urine Blood Trace (Negative) H 01/25/23 15:14 Urine Nitrate Negative (Negative) 01/25/23 15:14 Urine Bilirubin Neg (Negative) 01/25/23 15:14 Urine Urobilinogen Norm mg/dL (Negative) 01/25/23 15:14 Ur Leukocyte Esterase Negative (Negative) 01/25/23 15:14 Urine RBC 0-4 /hpf (0-2) H 01/25/23 15:14 Urine WBC 0-4 /hpf (0-5) H 01/25/23 15:14 Ur Squamous Epith Cells Rare /hpf (0-5) 01/25/23 15:14 Amorphous Sediment Not Reportable 01/25/23 15:14 Urine Bacteria None /hpf (NONE) 01/25/23 15:14 Urine Mucus 1+ /hpf 01/25/23 15:14 Urine Sperm 1+ /hpf 01/25/23 15:14 All radiology interpretation(s) finalized by discharge Discharge Plan Discharge Patient Disposition: Home Clinical Impression: Right renal stone, Abdominal pain, Nausea & vomiting Condition: Stable Prescriptions: New Flomax 0.4 mg capsule 0.4 mg PO DAILY Qty: 20 0RF hydrocodone-acetaminophen 5-325 mg tablet 1 tab PO Q6H PRN (Reason: pain) Qty: 14 0RF ondansetron HCl 4 mg tablet 4 mg PO TID 3 Days Qty: 9 0RF No Action primidone 50 mg tablet 50 mg PO BID gemfibrozil 600 mg tablet 600 mg PO BID prazosin 2 mg capsule 2 mg PO .HS hydroxyzine HCl 25 mg tablet 25 mg PO .HS mirtazapine 30 mg tablet 60 mg PO .HS cholecalciferol (vitamin D3) 50 mcg (2,000 unit) capsule 50 mcg PO BID turmeric root extract 500 mg capsule 1,000 mg PO DAILY galantamine 4 mg tablet 4 mg PO BID Qty: 60 2RF Rx Instructions: administer with AM and PM meals venlafaxine 75 mg capsule,extended release 24hr 75 mg PO TID 14 Days Qty: 42 0RF amlodipine 5 mg tablet 5 mg PO DAILY Qty: 90 3RF Discharge Orders: Discharge ED (Routine); Ordered 01/25/23 Ordered By: Baron Suero Referrals: Dora Perez MD [Primary Care Provider] - Discharge Diet: Advance as tolerated Discharge Activity: Resume usual activity Patient Instructions: Abdominal Pain (ED), Opioid Safety, Pain Management Activity Restrictions/Additional Instructions: Activity Restrictions/Additional Instructions: Thank you for choosing [facility] for your healthcare needs today. Please realize that you were seen in the Emergency Department and that we are providing you with an emergency medical screening exam and this may not be complete and all inclusive of all the testing and or medical work-up that you may need to determine your ailment or severity of your illness. It is very important that you follow-up as instructed with your Primary care provider or Specialist for additional evaluation and to discuss your medical treatment plan. You may return to the Emergency Department should you have concerns or if your condition changes or worsens in any way. FOLLOW-UP WITH [facility] [address] [place] [address] [place] [address] Coding Level of Care Code ED Induction Coordination Engineer for Elio Pendleton
[2023-01-25] MEDS: ondansetron 2 mg/ML SDV 2 mL 4 MG IVP (14:21)
[2023-01-25] MEDS: ketorolac 30 mg/mL INJ IVP (14:22)
[2023-01-25] MEDS: sodium chloride 0.9% 1,000 ML 999 ML IV (14:25)
[2023-01-25] MEDS: fentaNYL 50 mcg/mL INJ 2mL IVP (15:36)
[2023-01-25 16:11] LABS: Bilirubin Urine Neg (Negative); Blood Urine Trace (Negative); Glucose Urine UA Norm (Normal); Ketones Urine Negative (Negative); Nitrate Urine Negative (Negative); Protein Urine Neg (Negative); Urine Appearance Clear (CLEAR); Urine Color Yellow (Yellow); Urobilinogen Urine Norm (Negative); pH Urine 6 (5-7)
[2023-01-25 16:12] LABS: Add Urine Microscopic? YES; Leukocyte Esterase Urine Negative (Negative)
[2023-01-25 16:15] LABS: Mucus Urine 1+ /hpf; RBC Urine 0-4 /hpf (0-2); Squamous Epithelial Cell Urine RARE /hpf (0-5); WBC Urine 0-4 /hpf (0-5)
[2023-01-25 16:16] LABS: Add Urine Culture? No; Sperm Urine 1+ /hpf
--- NOTE | 2023-01-25 16:45 | CTR_ITS ---
PROCEDURE INFORMATION: Exam: CT Abdomen And Pelvis With Contrast Exam date and time: 01/25/2023 5:12 PM Age: 57 years old Clinical indication: Abdominal pain; Localized; Right lower quadrant (rlq); Prior surgery; Surgery date: 6+ months; Surgery type: Ayleen, pain stimulator; Additional info: Right lower quadrant abd pain TECHNIQUE: Imaging protocol: Computed tomography of the abdomen and pelvis with contrast. Radiation optimization: All CT scans at this facility use at least one of these dose optimization techniques: automated exposure control; mA and/or kV adjustment per patient size (includes targeted exams where dose is matched to clinical indication); or iterative reconstruction. Contrast material: OMNI 350; Contrast volume: 100 ml; Contrast route: INTRAVENOUS (IV); REPORTING DATA: Count of CT and Cardiac NM exams in prior 12 months: This patient has received 0 known CTs and 0 known cardiac nuclear medicine studies in the 12 months prior to the current study. COMPARISON: CT chest abdpel w/*[id number] 01/16/2021 9:58 PM RADIATION DOSE METRICS: Total DLP (mGy-cm): 1032 FINDINGS: Lungs: 10 mm calcified granuloma right lung base. Liver: Decreased hepatic density is noted, consistent with hepatic steatosis. Gallbladder and bile ducts: The gallbladder is surgically absent. Pancreas: Unremarkable. No ductal dilation. Spleen: Calcified granulomas are noted in the spleen. Adrenal glands: The adrenal glands appear within normal limits. Kidneys and ureters: Mild right hydronephrosis. There is a 3 mm proximal obstructing right ureteral calculus. Findings are consistent with right obstructive uropathy. Left kidney and left ureter are unremarkable. Stable 1.5 cm right renal cyst. Stomach and bowel: No acute gastric abnormality demonstrated. The small bowel is unremarkable as demonstrated. No acute abnormality/inflammatory change of the colon. Appendix: The appendix is normal in appearance. No evidence of appendicitis. Intraperitoneal space: No free air. No significant fluid collection. Vasculature: Minimal atherosclerosis. No abdominal aortic aneurysm. Lymph nodes: No pathologically enlarged lymph nodes. Urinary bladder: The urinary bladder is unremarkable in appearance. Reproductive: Unremarkable as visualized. Bones/joints: Spinal stimulator device is partially demonstrated. Catheter tip at the T7 level. Soft tissues: Unremarkable. CT/CT abdomen pelvis w con* [id number] IMPRESSION: 1. Mild right hydronephrosis. There is a 3 mm proximal obstructing right ureteral calculus. Findings are consistent with right obstructive uropathy. 2. The appendix is normal in appearance. No evidence of appendicitis. 3. Decreased hepatic density is noted, consistent with hepatic steatosis.
[2023-01-25] MEDS: iohexol 350 mg/mL 500 mL Btl (per mL) IV (17:21)
[2023-01-25] MEDS: tamsulosin 0.4 mg Capsule PO (17:53)
[2023-01-25] MEDS: morphine 4 mg/mL SDV 1 mL IVP (18:08)
== END 2023-01-25 18:20 | disposition home or self-care (01) ==
PROVIDERS: Physician Assistant; Emergency Provider Internal Medicine; PCP Family Medicine
DX: N13.2 Hydronephrosis with renal and ureteral calculous obstruction (principal); R11.2 Nausea with vomiting, unspecified
CPT/HCPCS: 36415; 74177; 80053; 81001; 85025; 96374; 96375; 99285; J1885; J2270; J2405; J3010; J7030; Q9967

== ENCOUNTER 2023-02-08 10:43 | Outpatient (CLI) | payer OTHER, SELFPAY ==
--- NOTE | 2023-02-08 10:56 | XRR_ITS ---
PROCEDURE INFORMATION: Exam: XR Cervical Spine Exam date and time: 02/08/2023 11:01 AM Age: 57 years old Clinical indication: Neck pain; Additional info: Cervical pain TECHNIQUE: Imaging protocol: Radiologic exam of the cervical spine. Views: 2 or 3 views. COMPARISON: CT cervical spin wo con* [id number] 01/16/2021 9:55 PM FINDINGS: Bones/joints: Anterior C5-C7 surgical fusion. Surgical hardware projects in satisfactory position. Moderate C7-T1 degenerative disc disease. Mild scoliosis. Soft tissues: Unremarkable. XR/XR cervical spine 3V* [id number] IMPRESSION: Satisfactory postsurgical appearance without superimposed acute findings.
== END 2023-02-08 10:44 | disposition home or self-care (01) ==
PROVIDERS: PCP Family Medicine; Visit Provider Nurse Practitioner Family
DX: M54.2 Cervicalgia (principal)
CPT/HCPCS: 72040

== ENCOUNTER 2023-02-25 08:02 | Outpatient (RCR) | payer OTHER, SELFPAY | END 2023-03-06 23:59 | disposition home or self-care (01) | LOC: SOT 08:02 | PROVIDERS: PCP Family Medicine; Visit Provider Family Medicine | DX: M19.042 Primary osteoarthritis, left hand (principal); M19.041 Primary osteoarthritis, right hand; Z91.81 History of falling | CPT/HCPCS: 97022; 97110 ==

== ENCOUNTER 2023-03-07 06:00 | Outpatient (RCR) | payer OTHER, SELFPAY | END 2023-04-06 23:59 | disposition home or self-care (01) | LOC: SOT 06:00 | PROVIDERS: PCP Family Medicine; Visit Provider Family Medicine | DX: M19.042 Primary osteoarthritis, left hand (principal); M19.041 Primary osteoarthritis, right hand | CPT/HCPCS: 97022; 97110 ==

== ENCOUNTER → 2023-03-10 13:15 | Outpatient (BNVA) | payer OTHER, SELFPAY | PROVIDERS: PCP Family Medicine; Visit Provider Internal Medicine | DX: R55 Syncope and collapse (principal); I10 Essential (primary) hypertension | CPT/HCPCS: 99213 ==

== ENCOUNTER 2023-04-07 06:00 | Outpatient (RCR) | payer OTHER, SELFPAY | END 2023-05-05 23:59 | disposition home or self-care (01) | LOC: SOT 06:00 | PROVIDERS: PCP Family Medicine; Visit Provider Family Medicine | DX: M19.042 Primary osteoarthritis, left hand (principal); M19.041 Primary osteoarthritis, right hand | CPT/HCPCS: 97022; 97110; 97140 ==

== ENCOUNTER → 2023-05-16 09:43 | Outpatient (BNVA) | payer OTHER, SELFPAY | PROVIDERS: PCP Family Medicine; Visit Provider Podiatrist Foot & Ankle Surgery | DX: Q66.71 Congenital pes cavus, right foot; Q66.72 Congenital pes cavus, left foot | CPT/HCPCS: 73630; 99203 ==

== ENCOUNTER → 2023-07-04 09:19 | Outpatient (BNVA) | payer OTHER, SELFPAY | PROVIDERS: PCP Family Medicine; Visit Provider Podiatrist Foot & Ankle Surgery | DX: Q66.71 Congenital pes cavus, right foot (principal); Q66.72 Congenital pes cavus, left foot | CPT/HCPCS: 20600; J1100; J3301; J3490 ==

== ENCOUNTER → 2023-07-13 14:47 | Outpatient (BNVA) | payer OTHER, SELFPAY | PROVIDERS: PCP Family Medicine; Visit Provider Podiatrist Foot & Ankle Surgery | DX: Q66.71 Congenital pes cavus, right foot; Q66.72 Congenital pes cavus, left foot | CPT/HCPCS: 99214 ==

== ENCOUNTER 2023-08-05 08:41 | Day surgery (SDC) | payer OTHER, SELFPAY ==
[2023-08-05] VITALS (7 sets, daily range): BP systolic 82–115; BP diastolic 59–77; PULSE 51–61; RESP 12–18; TEMP 36.3–36.9; O2SAT 95–98; BMI 35.2
--- NOTE | 2023-08-05 09:44 | P.OP_ITS ---
Operative Report Date of procedure: August 05, 2023 Pre-op diagnosis: Hallux rigidus of right foot M20.21 and Foot pain, right M79.671 Post-op diagnosis: Hallux rigidus of right foot M20.21 and Foot pain, right M79.671 Procedure done: Right first metatarsal phalange joint fusion CPT code 18895 Surgeon: Allan Kirby DPM Automobile Upholstery Trim Installer: OPAL Estimated blood loss: 2 mL See intraoperative documentation IV fluids: See intraoperative documentation Urine output: 0 Brief History: Failed conservative treatments consisting of rest, supportive shoes, custom orthotics with Landin's extension, local and systemic anti-inflammatories. Like to discuss surgical options for hallux rigidus to the right foot. Discussed joint preserving versus joint destructive procedures. He is leaning towards arthrodesis as this will be a more reliable procedure to be 1 and done and not require further intervention down the road. I reviewed at length with the patient, the risks, potential complications, benefits, alternatives, expectations, and typical outcomes associated with the surgery. The risks and potential complications were explained in detail, including but not limited to infection, wound dehiscence or soft tissue complications, bleeding and hematoma, chronic edema, neuritis or nerve damage producing numbness or chronic pain, CRPS, failure to relieve pain or worsening pain, thick / painful / unsightly scar, limited motion / stiffness, malposition, delayed union, malunion, or nonunion, fracture, reaction to implants, anesthetic complications, venous thromboembolism, and deformity recurrence. I discussed the notion of no regrets with the patient as it pertains to complications and outcomes. The patient seemed to understand the nature of the proposed care and required convalescence. They asked appropriate questions, answered to their satisfaction. They are aware no guarantees can be made as to a satisfactory outcome and they understand there may be other possible unforeseen complications or outcomes not listed here that will be treated accordingly if they arise. There were no written or implied guarantees given to the patient. They gave informed consent to proceed. Procedure: Implants: Derry first metatarsal phalangeal joint primary arthrodesis plate with 2.7 millimeter screws distally, 3.5 millimeter screws proximally and 3 mm homerun screw, 3-0 Vicryl, 4-0 Vicryl, 4-0 nylon Specimens removed/disposition: None Pathology: None Surgeon: Allan Kirby DPM Procedure: Under mild sedation patient was brought to the operating room and remained on the gurney in supine position. A timeout was performed. Anesthesia was then administered by the anesthesia service. Local anesthesia was injected by myself consisting of 20 cc of 0.5% Marcaine plain and a right male block fashion with additional 10 cc of Exparel subcutaneously in a grid like fashion proximal to the operative site. Well-padded pneumatic tourniquet was applied to the right ankle. The right lower extremity was scrubbed, prepped and draped utilizing normal aseptic technique. Right foot was exanguinated with an Esmarch bandage and tourniquet flighted to 250 mmHg. Attention was directed to the dorsal medial aspect of the right first metatarsal phalangeal joint where a curvilinear longitudinal incision was made medial to lateral to the extensor hallucis longus tendon. Dissection was carried down through subcutaneous tissue to the layer of joint capsule and periosteum utilizing sharp and blunt technique. Care was taken to retract and preserve neurovascular and tendinous structures. All bleeders were ligated and cauteri zed as necessary. Capsular and periosteal incision was performed and head of the first metatarsal and base of the proximal phalanx were freed from their soft tissue and capsular attachments, of note the hallux valgus deformity was apparent intraoperatively and degenerative first metatarsal phalangeal joint with loss of cartilage was also appreciated. The first metatarsal phalangeal joint was prepped for arthrodesis utilizing cone and cup reamers at the head of the first metatarsal and base of the proximal phalanx denuding articular surface and subchondral drilling with fenestrating drill bit. The incision was irrigated prior to subchondral drilling. The right first metatarsal phalangeal joint was held in slight dorsiflexion, neutral in the frontal plane and slight valgus and temporarily fixated utilizing a K wire. Next utilizing standard AO technique a Derry primary arthrodesis plate was utilized for fixation with a dorsal locking plate 2.7 millimeter screws distally and 3.5 millimeter screws proximally with 3 mm homerun screw with excellent bony apposition and compression noted. AP, oblique and lateral view confirmed excellent placement and alignment of the medial column arthrodesis site in all 3 planes and appropriate hardware fixation without violating adjacent structures. The incision was irrigated with saline solution. Simulated weightbearing with a flat metal lid on the right foot the right great toe was then ideal position with the pulp of the toe gently resting on the plate. The incision was then irrigated and closed in a layered fashion. Periosteum and capsule reapproximated with 3-0 Vicryl, subcutaneous tissue with 4-0 Vicryl and skin with 4-0 nylon. Dressing consisting of nonadherent Adaptic, 4 x 4 gauze, Kerlix and Prem wrap followed by application of a cam boot to the right lower extremity followed by deflation of the tourniquet with a prompt hyperemic response noted to the distal digits of the right foot. Patient tolerated the procedure and anesthesia well and was transferred to the PACU with vital signs stable and vascular status intact. Following a period of postoperative monitoring she will be discharged home was given at home care instructions and scheduled follow-up as well as myself number to contact with any postoperative questions or concerns.
--- NOTE | 2023-08-05 09:48 | W.PM.OPSUD ---
Surgery/Procedure H&P Update DATE OF PROCEDURE: August 05, 2023 DATE H&P PERFORMED: 07/13/23 H&P UPDATE INFORMATION: I have reviewed H&P completed within last 30 days, I have examined patient prior to procedure, No changes to prior documentation and H&P is in [facility] EMR on date indicated PREOP DIAGNOSIS: Right hallux rigidus PLANNED PROCEDURE: Operation Date: 08/05/23 10:10 Proposed Procedures p Arthrodesis Foot Metatarsophalangeal Joint Arthrodesis(Right) - Allan Kirby DPM
[2023-08-05] MEDS: sodium chloride 0.9% 1,000 ML 30 ML IV (09:51)
--- NOTE | 2023-08-05 09:52 | ANES.PREANE2 ---
Pre-Anesthetic Assessment Height/Weight: Height 1.7 m Weight 102.058 kg Temp Pulse Resp BP Pulse Ox O2 Del Method 97.5 F L 51 L 18 115/72 95 Room Air 08/05/23 09:06 08/05/23 09:06 08/05/23 09:06 08/05/23 09:06 08/05/23 09:06 08/05/23 09:06 Preop Diagnosis: Right hallux rigidus Operation Date: 08/05/23 10:10 Proposed Procedures p Arthrodesis Foot Metatarsophalangeal Joint Arthrodesis(Right) - Allan Kirby DPM Familial anesthetic complications: None Was Beta Dustin taken within 24 hours: N/A Was Clonidine taken within 24 hours: N/A Last intake: Intake Last Liquid Date 08/04/23 Last Liquid Time 21:00 Last Solid Date 08/04/23 Last Solid Time 19:00 Social No alcohol and No tobacco Exam alert, oriented x 3, clear to auscultation bilaterally and regular rate & rhythm Airway Mallampati: Class IV Dentition: full CV/HEM Hypertension LHC with no significant CAD Neuropsych parkinson's Anesthetic Plan ASA status: 3 Anesthesia: MAC Risk of > 500 ml blood loss (7ml/kg in children): No Medications/Allergies Home Medications Medication Instructions Recorded Confirmed Last Taken Type gemfibrozil 600 mg tablet 600 mg PO BID 03/22/19 08/04/23 08/04/23 History hydroxyzine HCl 25 mg tablet 25 mg PO .HS 03/22/19 08/04/23 08/04/23 History mirtazapine 30 mg tablet 60 mg PO .HS 03/22/19 08/04/23 08/04/23 History prazosin 2 mg capsule 2 mg PO .HS 03/22/19 08/04/23 08/04/23 History primidone 50 mg tablet 50 mg PO BID 03/22/19 08/04/23 08/04/23 History cholecalciferol (vitamin D3) 50 50 mcg PO BID 11/27/19 08/04/23 08/04/23 History mcg (2,000 unit) capsule turmeric root extract 500 mg 1,000 mg PO DAILY 11/27/19 08/04/23 08/04/23 History capsule venlafaxine 75 mg capsule,extended 75 mg PO TID 14 days #42 caps 06/16/20 08/04/23 08/04/23 Rx release 24 hr amlodipine 5 mg tablet 5 mg PO DAILY #90 tabs 05/08/21 08/04/23 08/04/23 Rx galantamine 4 mg tablet 4 mg PO BID #60 tabs 03/18/22 08/04/23 08/04/23 Rx tamsulosin 0.4 mg capsule (Flomax) 0.4 mg PO DAILY #20 caps 01/25/23 08/04/23 08/04/23 Rx lamotrigine 100 mg tablet 100 mg PO DAILY 03/10/23 08/04/23 08/04/23 History Custom molded insoles with #1 ea 05/16/23 07/13/23 Unknown Rx phillips's extension to right celecoxib 200 mg capsule (Celebrex) 200 mg PO BID 08/04/23 08/04/23 08/04/23 History hydrocodone 10 mg-acetaminophen 1 tab PO Q6H PRN pain 7 days #28 08/05/23 Unknown Rx 325 mg tablet tabs Allergies Allergy/AdvReac Type Severity Reaction Status Date / Time valproic acid Allergy unkown Verified 08/05/23 08:57 Current Medications Generic Name Dose Route Start Last Admin Trade Name Freq PRN Reason Stop Dose Admin Sodium Chloride 1,000 mls @ 30 mls/hr 08/05/23 09:00 08/05/23 09:51 Sodium Chloride 0.9% IV 08/06/23 08:59 30 mls/hr .Q24H SARITHA Administration PFSH Anesthesia Medical History Syncope Bradycardia Ch mgr wo marilyn w ntr w st Essential tremor -On primidone Parkinson disease Essential tremor Chronic migraine without aura, intractable, with status migrainosus -Follows up with Dr. Fish for Botox injections, last given on 09/19 Surgical History (Updated 08/04/23 @ 15:08 by Candida To, HEATHER) History of cholecystectomy History of carpal tunnel release Family History Mother Cancer Grandmother Cancer Other Cerebral palsy Tremor Social History Smoking and tobacco/nicotine status: never used tobacco/nicotine Alcohol intake: never Substance/Drug Use: never Data Anesthesia Cardiac Studies: Echocardiogram Ultrasound 09/27/19 Sestamibi Stress Test (Cardiology) 12/19/19 Cardiac Event Monitor 11/30/19
--- NOTE | 2023-08-05 09:53 | W.PM.BPON ---
Date of Procedure: 05/20/23 Surgeon: Allan Kirby DPM Scouring Train Operator Chief(s): Domo JOSEPH Procedure(s) performed: Right first metatarsal phalangeal joint fusion. Findings of the procedure(s): None Estimated blood loss: 2 mL Specimen(s) removed: No specimens removed Post-operative diagnosis: Right bunion and right hallux rigidus. 30 cc of 0.5 sent Marcaine plain in a right bravo block fashion with additional 10 cc of Exparel. Local MAC anesthesia. Right ankle tourniquet time 31 minutes. No complications with anesthesia or surgery.
[2023-08-05] MEDS: ceFAZolin 2,000 MG in sodium chloride 0.9% (plus) 50 ML 100 MG IV (10:10)
[2023-08-05] MEDS: BUPivacaine 0.5% INJ 30 mL INJECTION (10:39)
[2023-08-05] MEDS: BUPivacaine liposome 13.3 mg/mL SDV 10 mL 133 MG INFILTRATI (10:40)
--- NOTE | 2023-08-05 12:00 | ANE.PACU2 ---
Inpatient post-anesthesia follow up: Airway intact: Yes Vital signs: Temperature 97.9 F Pulse Rate 59 Respiratory Rate 16 Blood Pressure 103/72 Pulse Oximetry 97 Oxygen Delivery Me thod Room Air Oxygen Flow Rate 6 Fraction of Inspir ed Oxygen Hydration adequate: Yes Nausea and vomiting: No Pain level: 1 Mental status: Baseline
--- NOTE | 2023-08-05 12:37 | W.PM.BPON ---
Date of Procedure: 05/20/23 Surgeon: Allan Kirby DPM Sales Program Manager(s): Rosita Procedure(s) performed: Open reduction internal fixation left bimalleolar fracture Findings of the procedure(s): Left bimalleolar fracture Estimated blood loss: 5 mL Specimen(s) removed: None Post-operative diagnosis: Left bimalleolar fracture. No complications with anesthesia or surgery. Popliteal block left lower extremity performed preoperatively per anesthesia. General anesthetic. Saphenous nerve block performed by Dr. Kirby intraoperatively. Tourniquet time 41 minutes left high calf.
--- NOTE | 2023-08-05 14:19 | XR_ITS ---
WS: [id number] XR foot RT min 3V* [id number] REASON FOR EXAM: JONY PICS FINDINGS: Plate and screw arthrodesis of the first MTP joint. Surgical appliances are intact and in proper position and alignment. The arthrodesis is in proper alignment with reduction of the valgus deformity. XR/XR foot RT min 3V* [id number] IMPRESSION: Arthrodesis of the first MTP joint without abnormality.
== END 2023-08-05 12:00 | disposition home or self-care (01) ==
PROVIDERS: PCP Family Medicine; Visit Provider Podiatrist Foot & Ankle Surgery
PROC: (CPT 28740; principal; 2023-08-05 10:00)
DX: M20.21 Hallux rigidus, right foot (principal); I10 Essential (primary) hypertension; G20.A1 Parkinson's disease without dyskinesia, without mention of fluctuations
CPT/HCPCS: 28750; 73630; 76000; C1713; C9290; J0690; J2250; J2371; J2704; J3010; J3490; J7030

== ENCOUNTER → 2023-08-17 08:58 | Outpatient (BNVA) | payer OTHER, SELFPAY | PROVIDERS: PCP Family Medicine; Visit Provider Podiatrist Foot & Ankle Surgery | DX: Z98.890 Other specified postprocedural states (principal); Q66.71 Congenital pes cavus, right foot; Q66.72 Congenital pes cavus, left foot; M79.671 Pain in right foot | CPT/HCPCS: 73630; 99024 ==

== ENCOUNTER → 2023-09-05 11:28 | Outpatient (BNVA) | payer OTHER, SELFPAY | PROVIDERS: PCP Family Medicine; Visit Provider Podiatrist Foot & Ankle Surgery | DX: Z98.890 Other specified postprocedural states (principal); Q66.71 Congenital pes cavus, right foot; Q66.72 Congenital pes cavus, left foot | CPT/HCPCS: 73630; 99024 ==

== ENCOUNTER → 2023-09-15 08:36 | Outpatient (BNVA) | payer OTHER, SELFPAY | PROVIDERS: PCP Family Medicine; Visit Provider Podiatrist Foot & Ankle Surgery | DX: Z98.890 Other specified postprocedural states (principal); Q66.71 Congenital pes cavus, right foot; Q66.72 Congenital pes cavus, left foot | CPT/HCPCS: 73630; 99024 ==

== ENCOUNTER → 2023-10-13 13:22 | Outpatient (BNVA) | payer OTHER, SELFPAY | PROVIDERS: PCP Family Medicine; Visit Provider Podiatrist Foot & Ankle Surgery | DX: Z98.890 Other specified postprocedural states (principal); Z98.1 Arthrodesis status | CPT/HCPCS: 73630; 99024 ==

== ENCOUNTER → 2024-01-16 11:05 | Outpatient (BNVA) | payer OTHER, SELFPAY | PROVIDERS: PCP Family Medicine; Visit Provider Podiatrist Foot & Ankle Surgery | DX: Z98.890 Other specified postprocedural states (principal); Z98.1 Arthrodesis status | CPT/HCPCS: 73630; 99213 ==

== ENCOUNTER → 2024-03-08 14:00 | Outpatient (BNVA) | payer OTHER, SELFPAY | PROVIDERS: PCP Family Medicine; Visit Provider Internal Medicine | DX: R55 Syncope and collapse (principal); I10 Essential (primary) hypertension; Z87.891 Personal history of nicotine dependence | CPT/HCPCS: 99213 ==

== ENCOUNTER 2024-03-30 08:48 | Outpatient (CLI) | payer OTHER, SELFPAY ==
--- NOTE | 2024-03-30 08:53 | IR_ITS ---
WS: [id number] MYELOGRAM LUMBAR SPINE Fluoroscopic guided lumbar myelogram CLINICAL INFORMATION: PAIN WHEN LIFTING LEG TECHNIQUE: The procedure, including risks, benefits, and complications, were discussed with the patie nt who agreed to proceed. A timeout was performed to confirm correct patient, procedure, and site. Using sterile technique, the patient was prepped and draped in the usual sterile fashion. After admin istration of local anesthesia using 1% preservative-free lidocaine and using fluoroscopic guidance, a 22-gauge spinal needle was advanced into the subarachnoid space at the L3-L4 level. Subsequently 13 cc of Omnipaque 240 was administered into the thecal sac. The needle was removed and hemostasis was a chieved. Spot fluoroscopic images were obtained. FLUOROSCOPIC TIME: 2min [id number] # of spot films: [address] myelogram report for anatomic detail. IR/IR myelogram sp lumbar [id number] IMPRESSION: Uncomplicated lumbar myelogram.
--- NOTE | 2024-03-30 09:58 | CT_ITS ---
WS: [id number] CT LUMBAR SPINE TECHNIQUE: Contrast-enhanced CT of the lumbar spine with coronal and sagittal reformatted images. CLINICAL INFORMATION: LBP COMPARISON: MRI 11/19/2016 DLP: 834.[address] scans at [facility] use at least one of these dose optimization techniques: automated e xposure control; mA and/or kV adjustment per patient size (includes targeted exams where dose is matc hed to clinical indication); or iterative reconstruction. FINDINGS: Mild lumbar curve. No acute compression. Disc space narrowing worse at L5-S1 with vacuum disc phenome non. Incidental limbus vertebra L4 and L5. L1-L2: No significant disc bulging. Spinal canal and foramen are patent. L2-L3: Mild annular bulging. Spinal canal and foramen are patent. L3-L4: Mild annular bulging. Mild facet arthropathy. Mild bilateral foraminal narrowing. L4-L5: Mild annular bulging. Slight effacement of the ventral thecal sac. Mild RIGHT greater than LEF T foraminal narrowing. Mild facet arthropathy. L5-S1: Disc space narrowing with vacuum disc phenomenon. Endplate osteophytic ridging. Loss of disc b ase height with disc desiccation. Mild facet arthropathy. Moderate RIGHT greater than LEFT foraminal narrowing with slight impingement on the exiting L5 nerve roots bilaterally. Visualized pelvic bony structures: Normal. Paravertebral soft tissues: Normal. Partially visualized bilateral renal cysts. Adrenal glands are normal. Diffuse fatty infiltration of the liver partially visualized. CT/CT lumbar spine w con [id number] IMPRESSION: 1. Mild lumbar curve. No acute compression. Disc space narrowing worse at L5-S 1 with vacuum disc phenomenon. 2. Moderate bilateral L5-S1 foraminal narrowing with impingement of the exitin g L5 nerve roots bilaterally. Recommend correlation for L5 nerve root symptoms. 3. Mild bilateral L4-5 foraminal narrowing. 4. Mild RIGHT L3-4 foraminal narrowing.
[2024-03-30] MEDS: iohexol 240 mg/mL 50 mL Btl 20 ML INTRATHECA (10:27)
== END 2024-03-30 08:49 | disposition home or self-care (01) ==
LOC: RAD 08:49
PROVIDERS: PCP Family Medicine; Visit Provider Family Medicine
DX: M48.07 Spinal stenosis, lumbosacral region (principal); M43.8X6 Other specified deforming dorsopathies, lumbar region; M48.061 Spinal stenosis, lumbar region without neurogenic claudication; R93.7 Abnormal findings on diagnostic imaging of other parts of musculoskeletal system; M51.369 Other intervertebral disc degeneration, lumbar region without mention of lumbar back pain or lower extremity pain; M47.896 Other spondylosis, lumbar region; M47.897 Other spondylosis, lumbosacral region; N28.1 Cyst of kidney, acquired; K76.0 Fatty (change of) liver, not elsewhere classified
CPT/HCPCS: 62304; 72132